=== PATIENT | female | born 1995 | race African-American/Black ===

== ENCOUNTER 2020-01-23 07:54 | Observation (INO) ==
[2020-01-23] MEDS ORDERED: OXYTOCIN 30 UNITS/500 ML BAG IV PRN (08:53)
[2020-01-23] MEDS ORDERED: LABETALOL HCL 100 MG TAB PO ONE (08:53)
--- NOTE | 2020-01-23 09:08 | History & Physical Report ---
Date of Service January 23, 2020 Assessment & Plan (1) Elective induction of labor planned: Patient is a 24-year-old G1, P0 at 40 weeks and 2 days of gestation, presenting today for scheduled induction of labor at term. Blood pressures are elevated since admission, mild right-sided headache. heart rate reassuring GBS negative Coronavirus negative Cervix unfavorable Plan to admit, labs, CBC CMP and LDH, labetalol for elevated blood pressure. Cervical ripening, discussed different options as oral Cytotec versus intravaginal Cervidil versus Thompson balloon. Patient is unable to tolerate vaginal exams and prefer oral cervical ripening. Continue to monitor. (2) Elevated blood pressure affecting in third trimester, antepartum: Admission and Anticipated Discharge Date Admission Date: January 23, 2020 History of Present Illness Primary Care Provider: NO PCP Patient is a 24-year-old G1, P0 at 40 weeks and 2 days of gestation with a present presenting today for scheduled induction of labor at term. Patient denies contractions, leakage of fluid, vaginal bleeding. Patient reports good movements. Patient denies fever chills, chest pain shortness of breath, nausea vomiting, epigastric or right upper quadrant pain, leg pain. Patient reports mild headache on her right adventism. No change in her vision. Allergies Allergy/AdvReac Type Severity Reaction Status Date / Time quinine [From Quine] Allergy Rash Verified 01/23/20 08:11 Home Medications Home Medications Medication Instructions Recorded Confirmed Type PNV cmb#95-ferrous fumarate-FA 1 tab PO HS 02/17/19 01/23/20 History [] Patient History Medical History No pertinent past medical history Surgical History No pertinent past surgical history Family History Other No pertinent family history Social History Smoking Status: Never smoker Second Hand Exposure: No; Do You Dip or Chew Tobacco: No; Tobacco Cessation Education Requested by Patient: No Hx Alcohol Use: No Hx Substance Use: No Preferred Language: Mohawk Communication Ability: Effective Executive Chef Required: No Beliefs That Will Affect Care: None marital status: Current Living Situation: Spouse Current Living Situation Comment: Lives at home with Other Information That Helps Us Care for You: No Feels Safe at Home: Yes Safety Concerns: Feels Safe At This Time Assistive Devices: None 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 History Noh/o STD's, no HSV/ GC/ Chlamydia Review of Systems All systems reviewed & are unremarkable except as noted in HPI & below Physical Exam Constitutional: WD/WN, vitals as above well developed and well nourished NAD, Comfortable Gastrointestinal (Abdomen): normal bowel sounds, soft, nontender, no hepatosplenomegaly (No epig/ RUQ pain) Genitourinary: normal external appearance OB Exam Abdomen: + vertex (bed side US) Manual OB Exam: + cervical dilation 1 cm, + cervical effacement 10% and + station high OB Exam Monitor Tracing: + category I Results & Data ([facility]) Vital Signs (Past 12 Hours) Vital Signs Temp Pulse Resp BP 01/23/20 08:57 97 H 150/96 H 01/23/20 08:47 93 H 159/100 H 01/23/20 08:37 87 154/84 H 01/23/20 08:26 95 H 154/99 H 01/23/20 08:18 93 H 152/106 H 01/23/20 08:17 99 H 141/102 H 01/23/20 08:11 36.7 C 114 H 18 145/95 H 01/23/20 08:06 114 H 145/95 H 01/23/20 08:00 102 H 156/93 H 01/23/20 07:57 98 H 171/110 H
[2020-01-23 09:19] LABS: Hematocrit (blood only) 34.2 % (37-47); Hemoglobin 11.6 g/dL (12.0-16.0); Mean Corpuscular Hemoglobin 28.4 pg (25-34); Mean Corpuscular Volume 83.8 fL (80-100); Mean Platelet Volume 11.4 fL (7.4-10.4); Platelet Count 181 K/uL (130-400); RDW Coefficient of Variation 14.4 % (11.5-14.5); RDW Standard Deviation 44.2 fL (36.4-46.3); Red Blood Count 4.08 M/uL (4.2-5.4); White Blood Count 9.55 K/uL (4.8-10.8)
[2020-01-23] MEDS: miSOPROStoL 50 MCG TAB PO SCH ×3 (09:20→21:33)
[2020-01-23 09:27] LABS: Appearance Urine Cloudy (Clear); Bacteria Urine Automated 1+ (Negative); Bilirubin Urine Negative (Negative); Blood Urine Trace (Negative); Color Urine Dark Yellow; Epithelial Cell Urine Auto >30 /lpf (0-5); Glucose Urine UA Negative (Negative); Ketones Urine Negative (Negative); Leukocyte Esterase Urine 2+ (Negative); Nitrite Urine Negative (Negative); Protein Urine 1+ (Negative); Specific Gravity Urine 1.017 (1.000-1.030); Urobilinogen Urine Negative (Negative); pH Urine 6.5 (4.5-7.5)
[2020-01-23 09:40] LABS: Mean Corpuscular Hgb Conc 33.9 g/dL (32-36)
[2020-01-23 09:46] LABS: Calcium Oxalate Crystals Urine Present (None Prsent); RBC Urine Automated 0-4 /hpf (0-4)
[2020-01-23 09:46] LABS: Alanine Aminotransferase 16 U/L (12-78); Albumin Level 2.5 gm/dl (3.4-5.0); Aspartate Aminotransferase 17 U/L (15-37); Blood Urea Nitrogen 10 mg/dl (7-18); Calcium 11.5 mg/dl (8.5-10.1); Carbon Dioxide 20 mmol/L (21-32); Chloride 109 mmol/L (98-107); Creatinine Clr Calc Pharmacy 161.1 ml/min; Est GFR (African American) > 150.0; Est GFR (Non-African American) 133.6; Glucose 85 mg/dl (70-99); Potassium 3.8 mmol/L (3.5-5.1); Sodium 137 mmol/L (136-145)
[2020-01-23 09:49] LABS: Albumin Globulin Ratio 0.5 (0.9-2); Alkaline Phosphatase 234 U/L (45-117); Bilirubin,Total 0.2 mg/dl (0.2-1); Globulin 5.1 gm/dl (2.5-4.0); Total Protein 7.6 gm/dl (6.4-8.2)
[2020-01-23] MEDS: LABETALOL HCL 100 MG TAB PO SCH ×2 (16:10→20:29)
[2020-01-23] MEDS ORDERED: DINOPROSTONE 10 MG INSERT PV ONE (18:49)
--- NOTE | 2020-01-23 18:49 | Obstetrical Progress Note ---
Date of Service January 23, 2020 Assessment & Plan Admission and Anticipated Discharge Date Admission Date: January 23, 2020 Subjective Patient is reevaluated She is due for 3rd dose of Cytotec but she is hungry and likes to eat her own food from home before Her LONGORIA's was gone in the morning and starting to come back She normally has black tea and has not had it today Cts are staring as every 5-10 min, pain is 3-4/ 10 FHR categ I Discussed PO Cytotec vs Cervidil and she likes to try Cervidil this time Plan to feed her and Cervidil after an hour Results & Data ([facility]) Vital Signs (Past 12 Hours) Vital Signs Temp Pulse Resp BP 01/23/20 18:31 64 159/94 H 01/23/20 17:24 85 155/102 H 01/23/20 17:10 90 141/96 H 01/23/20 16:55 67 139/88 01/23/20 16:40 69 141/79 H 01/23/20 16:25 62 138/78 01/23/20 16:09 63 154/92 H 01/23/20 15:39 36.6 C 108 H 18 151/89 H 01/23/20 15:09 78 156/93 H 01/23/20 14:38 82 139/90 01/23/20 14:08 65 149/97 H 01/23/20 12:36 70 140/78 01/23/20 12:27 77 139/76 01/23/20 12:17 81 130/68 01/23/20 12:07 82 134/76 01/23/20 11:56 81 143/65 H 01/23/20 11:47 83 147/68 H 01/23/20 11:37 78 144/78 H 01/23/20 11:27 36.8 C 93 H 16 141/70 H 01/23/20 11:16 94 H 161/89 H 01/23/20 11:07 83 143/84 H 01/23/20 10:57 83 157/89 H 01/23/20 10:48 85 158/93 H 01/23/20 10:36 86 152/95 H 01/23/20 10:27 79 145/96 H 01/23/20 10:16 86 147/79 H 01/23/20 10:07 90 147/94 H 01/23/20 09:56 111 H 175/104 H 01/23/20 09:46 85 157/98 H 01/23/20 09:37 85 150/99 H 01/23/20 09:27 76 152/98 H 01/23/20 09:17 100 H 155/98 H 01/23/20 09:06 93 H 157/99 H 01/23/20 08:57 97 H 150/96 H 01/23/20 08:47 93 H 159/100 H 01/23/20 08:37 87 154/84 H 01/23/20 08:26 95 H 154/99 H 01/23/20 08:18 93 H 152/106 H 01/23/20 08:17 99 H 141/102 H 01/23/20 08:11 36.7 C 114 H 18 145/95 H 01/23/20 08:06 114 H 145/95 H 01/23/20 08:05 36.7 C 114 H 18 01/23/20 08:00 102 H 156/93 H 01/23/20 07:57 98 H 171/110 H
[2020-01-23] MEDS: ACETAMINOPHEN 325 MG TAB PO PRN (20:35)
--- NOTE | 2020-01-23 20:36 | Obstetrical Progress Note ---
Date of Service January 23, 2020 Assessment & Plan Admission and Anticipated Discharge Date Admission Date: January 23, 2020 Subjective Patient had her dinner and took shower, feels much better No ctxs/ LOF/VB No LONGORIA/Change in vision +FM's Vital Signs Temp Pulse Resp BP 01/23/20 20:32 77 139/96 01/23/20 19:02 36.9 C 85 20 136/93 01/23/20 18:31 64 159/94 H 01/23/20 17:24 85 155/102 H 01/23/20 17:10 90 141/96 H 01/23/20 16:55 67 139/88 01/23/20 16:40 69 141/79 H 01/23/20 16:25 62 138/78 01/23/20 16:09 63 154/92 H 01/23/20 15:39 36.6 C 108 H 18 151/89 H 01/23/20 15:09 78 156/93 H 01/23/20 14:38 82 139/90 01/23/20 14:08 65 149/97 H 01/23/20 12:36 70 140/78 01/23/20 12:27 77 139/76 01/23/20 12:17 81 130/68 01/23/20 12:07 82 134/76 01/23/20 11:56 81 143/65 H 01/23/20 11:47 83 147/68 H 01/23/20 11:37 78 144/78 H 01/23/20 11:27 36.8 C 93 H 16 141/70 H 01/23/20 11:16 94 H 161/89 H 01/23/20 11:07 83 143/84 H 01/23/20 10:57 83 157/89 H 01/23/20 10:48 85 158/93 H 01/23/20 10:36 86 152/95 H 01/23/20 10:27 79 145/96 H 01/23/20 10:16 86 147/79 H 01/23/20 10:07 90 147/94 H 01/23/20 09:56 111 H 175/104 H 01/23/20 09:46 85 157/98 H 01/23/20 09:37 85 150/99 H 01/23/20 09:27 76 152/98 H 01/23/20 09:17 100 H 155/98 H 01/23/20 09:06 93 H 157/99 H 01/23/20 08:57 97 H 150/96 H 01/23/20 08:47 93 H 159/100 H 01/23/20 08:37 87 154/84 H On Labetalol PO for elevated BP's Normal labs Cervix unchanged, 1 cm. thick/ -4, Cervidil is placed in posterior fornix Continue to monitor closely Results & Data ([facility]) Vital Signs (Past 12 Hours) Vital Signs Temp Pulse Resp BP 01/23/20 20:32 77 139/96 01/23/20 19:02 36.9 C 85 20 136/93 01/23/20 18:31 64 159/94 H 01/23/20 17:24 85 155/102 H 01/23/20 17:10 90 141/96 H 01/23/20 16:55 67 139/88 01/23/20 16:40 69 141/79 H 01/23/20 16:25 62 138/78 01/23/20 16:09 63 154/92 H 01/23/20 15:39 36.6 C 108 H 18 151/89 H 01/23/20 15:09 78 156/93 H 01/23/20 14:38 82 139/90 01/23/20 14:08 65 149/97 H 01/23/20 12:36 70 140/78 01/23/20 12:27 77 139/76 01/23/20 12:17 81 130/68 01/23/20 12:07 82 134/76 01/23/20 11:56 81 143/65 H 01/23/20 11:47 83 147/68 H 01/23/20 11:37 78 144/78 H 01/23/20 11:27 36.8 C 93 H 16 141/70 H 01/23/20 11:16 94 H 161/89 H 01/23/20 11:07 83 143/84 H 01/23/20 10:57 83 157/89 H 01/23/20 10:48 85 158/93 H 01/23/20 10:36 86 152/95 H 01/23/20 10:27 79 145/96 H 01/23/20 10:16 86 147/79 H 01/23/20 10:07 90 147/94 H 01/23/20 09:56 111 H 175/104 H 01/23/20 09:46 85 157/98 H 01/23/20 09:37 85 150/99 H 01/23/20 09:27 76 152/98 H 01/23/20 09:17 100 H 155/98 H 01/23/20 09:06 93 H 157/99 H 01/23/20 08:57 97 H 150/96 H 01/23/20 08:47 93 H 159/100 H 01/23/20 08:37 87 154/84 H
[2020-01-24] MEDS: LABETALOL HCL 100 MG TAB PO SCH ×2 (08:58→21:06)
[2020-01-24] MEDS: LACTATED RINGER'S 1,000 ML IV PRN ×3 (09:48→21:00)
[2020-01-24] MEDS: BUTORPHANOL TARTRATE 1 MG/ML VIAL IV PRN ×2 (09:57→16:53)
--- NOTE | 2020-01-24 10:04 | Obstetrical Progress Note ---
Date of Service January 24, 2020 Assessment & Plan Admission and Anticipated Discharge Date Admission Date: January 23, 2020 Subjective Pt doing well FHR; CAT1 ctx ; 1-2mins VE; ft/post. pt tolerated pelvic exam poorly Plan; Pitocin augmentation as needed Results & Data ([facility]) Vital Signs (Past 12 Hours) Vital Signs Temp Pulse Resp BP 01/24/20 10:02 96 H 138/84 01/24/20 08:58 116 H 144/92 H 01/24/20 07:07 37.0 C 112 H 20 142/68 H 01/24/20 05:56 106 H 143/69 H 01/24/20 03:07 90 123/64 01/24/20 03:06 36.8 C 16 01/24/20 00:31 85 141/85 H 01/23/20 22:30 98 H 20 150/74 H
[2020-01-24] MEDS ORDERED: OXYTOCIN 30 UNITS/500 ML BAG IV PRN (11:00)
--- NOTE | 2020-01-24 16:50 | Obstetrical Progress Note ---
Date of Service January 24, 2020 Assessment & Plan Admission and Anticipated Discharge Date Admission Date: January 23, 2020 Subjective Doing well FHR; CAT1 Ctx; 2-4mins VE; 1/50/-3 Pit 14mu Thompson bulb placed with 30 cc salne Results & Data ([facility]) Vital Signs (Past 12 Hours) Vital Signs Temp Pulse Resp BP 01/24/20 16:02 97 H 20 137/94 01/24/20 15:02 36.8 C 93 H 16 135/85 01/24/20 14:02 88 16 144/90 H 01/24/20 13:02 96 H 18 133/68 01/24/20 12:02 36.8 C 94 H 16 142/75 H 01/24/20 11:02 93 H 20 136/70 01/24/20 10:02 96 H 138/84 01/24/20 08:58 116 H 144/92 H 01/24/20 07:07 37.0 C 112 H 20 142/68 H 01/24/20 05:56 106 H 143/69 H
[2020-01-24] MEDS: miSOPROStoL 50 MCG TAB PO SCH (19:13)
[2020-01-24] MEDS ORDERED: BUPIVACAINE 0.25% 30 ML VIAL ONE (20:36)
[2020-01-24] MEDS ORDERED: ePHEDrine sulfate 50 MG/ML AMP ONE (20:36)
[2020-01-24] MEDS ORDERED: fentaNYL 2MCG/ML ROPIVACAINE 1.25MG/ML 100 ML BAG EPI ONE (20:37)
[2020-01-24] MEDS ORDERED: fentaNYL citrate 100 MCG/2 ML VIAL ONE (20:37)
--- NOTE | 2020-01-24 21:14 | Anesthesiology Consultation ---
Date of Service January 24, 2020 Assessment & Plan (1) Encounter for pre-operative examination: Chart Review Chart Review: Acceptable Risk for Labor Epidural Consults Requested none ASA ASA2 Proposed Anesthesia Anesthesia Type: Labor Epidural Risk / Benefits Reviewed With: PT / POA / Parent / Guardian, Accepts Plan and Informed Consent Obtained History Height/Weight Height: 5 ft 4 in Weight: 67.585 kg Allergies Allergy/AdvReac Type Severity Reaction Status Date / Time quinine [From Quine] Allergy Rash Verified 01/23/20 08:11 Medications Home Medications Medication Instructions Recorded Confirmed Last Taken PNV cmb#95-ferrous fumarate-FA 1 tab PO HS 02/17/19 01/23/20 01/22/20 18:00 [] Active Medications Generic Name Dose Route Start Last Admin Trade Name Freq PRN Reason Stop Dose Admin Acetaminophen 650 mg 01/23/20 18:49 01/23/20 20:35 Acetaminophen 325 Mg Tab PO 02/22/20 18:48 650 mg Q4H PRN Administration Headache Butorphanol Tartrate 1 mg 01/23/20 20:33 01/24/20 16:53 Butorphanol Tartrate 1 Mg/Ml Vial IV 02/22/20 20:32 1 mg Q3HWA PRN Administration Pain Lactated Ringer's 1,000 mls @ 150 mls/hr 01/23/20 08:53 01/24/20 21:00 Lr IV 01/25/20 08:52 999 mls/hr .Q6H40M PRN Administration L&D Protocol Protocol Oxytocin 30 units in 500 mls @ 20 mls/hr 01/24/20 11:00 01/24/20 19:14 Pitocin IV 01/26/20 10:59 1.2 units/hr .Q24H PRN 20 mls/hr Labor Induction/Augmentation Titration Protocol 1.2 UNITS/HR Labetalol HCl 100 mg 01/23/20 16:10 01/24/20 21:06 Labetalol Hcl 100 Mg Tab PO 02/22/20 16:09 100 mg BID ROLAND Administration Misoprostol 50 mcg 01/23/20 09:00 01/24/20 19:13 Misoprostol 50 Mcg Tab PO 02/22/20 08:59 Not Given Q4 ROLAND Past Medical History Medical History Malaria No pertinent past medical history Exercise / Class Metabolic Activity II 4-5 Yardwork/Stairs/Walk up hill Past Family History Family History Other No pertinent family history Past Surgical History Surgical History No pertinent past surgical history Past Anesthesia History No Hx of Anesthesia Complications and No Family Hx of Anesthesia Complications History of PONV No Hx of PONV and No Hx of Motion Sickness Social History Smoking Status: Never smoker Do You Dip or Chew Tobacco: No Hx Alcohol Use: No Hx Substance Use: No Physical Exam Vital Signs Last Vital Signs Temp 97.9 F 01/24/20 19:07 Pulse 75 01/24/20 21:09 Resp 18 01/24/20 20:00 BP 162/91 H 01/24/20 21:02 Pulse Ox 99 01/24/20 21:09 ENMT Mouth: no dentition abnormality Thyromental Distance: > or= 3.5 Finger Breadths Mallampati Class: II Neck normal visual inspection Respiratory normal respiratory effort Auscultation: lungs clear to auscultation bilaterally Cardiovascular Rate/Rhythm: regular rate and regular rhythm Testing Laboratory Results 01/23/20 09:01 01/23/20 09:01 Urine Color Dark Yellow 01/23/20 08:00 Urine Appearance Cloudy (Clear) A 01/23/20 08:00 Urine pH 6.5 (4.5-7.5) 01/23/20 08:00 Ur Specific Watson 1.017 (1.000-1.030) 01/23/20 08:00 Urine Protein 1+ (Negative) H 01/23/20 08:00 Urine Glucose (UA) Negative (Negative) 01/23/20 08:00 Urine Ketones Negative (Negative) 01/23/20 08:00 Urine Nitrite Negative (Negative) 01/23/20 08:00 Ur Leukocyte Esterase 2+ (Negative) H 01/23/20 08:00 Urine WBC (Auto) 10-30 /hpf (0-5) H 01/23/20 08:00 Urine RBC (Auto) 0-4 /hpf (0-4) 01/23/20 08:00 U Hyaline Cast (Auto) 1-5 /lpf (0-5) 01/23/20 08:00 U Epithel Cells (Auto) >30 /lpf (0-5) H 01/23/20 08:00 Urine Bacteria (Auto) 1+ (Negative) H 01/23/20 08:00 Blood Type B Positive 01/23/20 09:01 Antibody Screen NEGATIVE 01/23/20 09:01 01/23/20 08:00 Urine Culture - Preliminary Urine,Clean Catch Pin-point growth present, reincubating.
[2020-01-24] MEDS ORDERED: ONDANSETRON INJ 2 MG/ML 2 ML VIAL IV PRN (21:45)
[2020-01-24] MEDS ORDERED: NALOXONE HCL 0.4 MG/1 ML VIAL/CARP IV PRN (21:45)
[2020-01-24] MEDS ORDERED: NALOXONE HCL 1 MG in SODIUM CHLORIDE 0.9% 1000ML 1,000 ML IV PRN (21:45)
[2020-01-24] MEDS ORDERED: ePHEDrine sulfate 50 MG/ML AMP IV PRN (21:45)
[2020-01-24] MEDS ORDERED: fentaNYL 2MCG/ML ROPIVACAINE 1.25MG/ML 100 ML BAG EPI PRN (21:45)
[2020-01-24] MEDS ORDERED: diphenhydrAMINE 50 MG/ML VIAL IV PRN (21:45)
--- NOTE | 2020-01-24 23:10 | Obstetrical Progress Note ---
Date of Service January 24, 2020 Assessment & Plan Admission and Anticipated Discharge Date Admission Date: January 23, 2020 Subjective Pt doing well Received epidural analgesia FHR; CAT1 Ctx; 2-4mins VE; 3/75/-2 AROM- clear IUPC placed without difficulty continue with Pitocin augmentation Results & Data ([facility]) Vital Signs (Past 12 Hours) Vital Signs Temp Pulse Resp BP Pulse Ox 01/24/20 23:04 84 96 01/24/20 22:59 80 98 01/24/20 22:54 80 156/93 H 97 01/24/20 22:49 77 97 01/24/20 22:44 75 97 01/24/20 22:39 82 145/83 H 97 01/24/20 22:34 90 97 01/24/20 22:33 75 138/77 01/24/20 22:30 18 01/24/20 22:29 84 97 01/24/20 22:24 95 H 97 01/24/20 22:19 85 97 01/24/20 22:17 87 130/68 01/24/20 22:14 85 98 01/24/20 22:12 77 137/70 01/24/20 22:09 74 97 01/24/20 22:07 67 148/81 H 01/24/20 22:04 71 97 01/24/20 22:01 69 150/79 H 01/24/20 22:00 18 01/24/20 21:59 69 97 01/24/20 21:56 72 153/81 H 01/24/20 21:54 70 98 01/24/20 21:51 67 149/84 H 01/24/20 21:50 18 01/24/20 21:49 69 98 01/24/20 21:48 18 01/24/20 21:46 67 18 148/85 H 01/24/20 21:44 71 18 145/85 H 99 01/24/20 21:42 83 18 152/89 H 01/24/20 21:40 75 18 156/89 H 01/24/20 21:39 80 99 01/24/20 21:38 18 01/24/20 21:37 74 161/91 H 01/24/20 21:36 93 H 163/82 H 01/24/20 21:34 76 97 01/24/20 21:33 76 159/102 H 01/24/20 21:32 83 173/109 H 01/24/20 21:29 85 98 01/24/20 21:24 77 98 01/24/20 21:19 73 98 01/24/20 21:14 75 99 01/24/20 21:09 75 99 01/24/20 21:04 78 98 01/24/20 21:02 78 162/91 H 01/24/20 21:00 18 01/24/20 20:59 75 98 01/24/20 20:54 80 98 01/24/20 20:49 84 99 01/24/20 20:25 75 143/87 H 01/24/20 20:03 75 153/80 H 01/24/20 20:00 18 01/24/20 19:38 85 141/77 H 01/24/20 19:07 36.6 C 18 01/24/20 19:02 83 153/92 H 01/24/20 18:02 90 144/86 H 01/24/20 17:02 76 16 140/75 01/24/20 16:02 97 H 20 137/94 01/24/20 15:02 36.8 C 93 H 16 135/85 01/24/20 14:02 88 16 144/90 H 01/24/20 13:02 96 H 18 133/68 01/24/20 12:02 36.8 C 94 H 16 142/75 H
--- NOTE | 2020-01-24 23:18 | Obstetrical Progress Note ---
Date of Service January 24, 2020 Assessment & Plan Admission and Anticipated Discharge Date Admission Date: January 23, 2020 Subjective Results & Data ([facility]) Vital Signs (Past 12 Hours) Vital Signs Temp Pulse Resp BP Pulse Ox 01/24/20 23:14 83 97 01/24/20 23:09 91 H 140/84 97 01/24/20 23:04 84 96 01/24/20 22:59 80 98 01/24/20 22:54 80 156/93 H 97 01/24/20 22:49 77 97 01/24/20 22:44 75 97 01/24/20 22:39 82 145/83 H 97 01/24/20 22:34 90 97 01/24/20 22:33 75 138/77 01/24/20 22:30 18 01/24/20 22:29 84 97 01/24/20 22:24 95 H 97 01/24/20 22:19 85 97 01/24/20 22:17 87 130/68 01/24/20 22:14 85 98 01/24/20 22:12 77 137/70 01/24/20 22:09 74 97 01/24/20 22:07 67 148/81 H 01/24/20 22:04 71 97 01/24/20 22:01 69 150/79 H 01/24/20 22:00 18 01/24/20 21:59 69 97 01/24/20 21:56 72 153/81 H 01/24/20 21:54 70 98 01/24/20 21:51 67 149/84 H 01/24/20 21:50 18 01/24/20 21:49 69 98 01/24/20 21:48 18 01/24/20 21:46 67 18 148/85 H 01/24/20 21:44 71 18 145/85 H 99 01/24/20 21:42 83 18 152/89 H 01/24/20 21:40 75 18 156/89 H 01/24/20 21:39 80 99 01/24/20 21:38 18 01/24/20 21:37 74 161/91 H 01/24/20 21:36 93 H 163/82 H 01/24/20 21:34 76 97 01/24/20 21:33 76 159/102 H 01/24/20 21:32 83 173/109 H 01/24/20 21:29 85 98 01/24/20 21:24 77 98 01/24/20 21:19 73 98 01/24/20 21:14 75 99 01/24/20 21:09 75 99 01/24/20 21:04 78 98 01/24/20 21:02 78 162/91 H 01/24/20 21:00 18 01/24/20 20:59 75 98 01/24/20 20:54 80 98 01/24/20 20:49 84 99 01/24/20 20:25 75 143/87 H 01/24/20 20:03 75 153/80 H 01/24/20 20:00 18 01/24/20 19:38 85 141/77 H 01/24/20 19:07 36.6 C 18 01/24/20 19:02 83 153/92 H 01/24/20 18:02 90 144/86 H 01/24/20 17:02 76 16 140/75 01/24/20 16:02 97 H 20 137/94 01/24/20 15:02 36.8 C 93 H 16 135/85 01/24/20 14:02 88 16 144/90 H 01/24/20 13:02 96 H 18 133/68 01/24/20 12:02 36.8 C 94 H 16 142/75 H
[2020-01-25] MEDS: LACTATED RINGER'S 1,000 ML IV PRN ×2 (00:41→07:06)
[2020-01-25] MEDS ORDERED: Nursing to Pharmacy Communication SCH ×2 (01:00→05:45)
[2020-01-25] MEDS ORDERED: fentaNYL citrate 100 MCG/2 ML VIAL ONE (05:46)
[2020-01-25] MEDS ORDERED: BUPIVACAINE 0.25% 30 ML VIAL ONE (05:51)
--- NOTE | 2020-01-25 05:59 | Anesthesiology Progress Note ---
Date of Service January 25, 2020 Assessment & Plan Admission and Anticipated Discharge Date Admission Date: January 23, 2020 Subjective Patient states having increasing left sided labor pains. Epidural catheter was pulled back 1 cm. Epidural was bolused with 50mcg of fentanyl and 2mL of 0.25% bupivacaine. Physical Exam Vital Signs: Last Vital Signs Temp 98.6 F 01/25/20 02:31 Pulse 78 01/25/20 05:57 Resp 18 01/25/20 02:31 BP 158/67 H 01/25/20 05:57 Pulse Ox 96 01/25/20 05:54 Results & Data ([facility]) Medications Administered Acetaminophen (Acetaminophen 325 Mg Tab) 650 mg PO Q4H PRN PRN Reason: Headache Stop: 02/22/20 18:48 Last Admin: 01/23/20 20:35 Dose: 650 mg Documented by: [id number] Butorphanol Tartrate (Butorphanol Tartrate 1 Mg/Ml Vial) 1 mg IV Q3HWA PRN PRN Reason: Pain Stop: 02/22/20 20:32 Last Admin: 01/24/20 16:53 Dose: 1 mg Documented by: [id number] Cosigned by: [id number] Admin: 01/24/20 09:57 Dose: 1 mg Documented by: [id number] Cosigned by: [id number] Lactated Ringer's (Lr) 1,000 mls @ 150 mls/hr IV .Q6H40M PRN; Protocol PRN Reason: L&D Protocol Stop: 01/25/20 08:52 Last Admin: 01/25/20 00:41 Dose: 150 mls/hr Documented by: [id number] Infusion: 01/25/20 00:41 Dose: 150 mls/hr Documented by: [id number] Infusion: 01/24/20 21:26 Dose: 150 mls/hr Documented by: [id number] Admin: 01/24/20 21:00 Dose: 999 mls/hr Documented by: [id number] Infusion: 01/24/20 21:00 Dose: 0 mls/hr Documented by: [id number] Infusion: 01/24/20 20:30 Dose: 999 mls/hr Documented by: [id number] Infusion: 01/24/20 18:44 Dose: 125 mls/hr Documented by: [id number] Admin: 01/24/20 15:39 Dose: 125 mls/hr Documented by: [id number] Infusion: 01/24/20 10:49 Dose: 999 mls/hr Documented by: [id number] Admin: 01/24/20 09:48 Dose: 999 mls/hr Documented by: [id number] Oxytocin (Pitocin) 30 units in 500 mls @ 30 mls/hr IV .[id number] PRN; Protocol PRN Reason: Labor Induction/Augmentation Stop: 01/26/20 10:59 Last Titration: 01/25/20 01:00 Dose: 1.8 units/hr, 30 mls/hr Documented by: [id number] Titration: 01/25/20 00:30 Dose: 1.68 units/hr, 28 mls/hr Documented by: [id number] Titration: 01/25/20 00:00 Dose: 1.56 units/hr, 26 mls/hr Documented by: [id number] Titration: 01/24/20 23:30 Dose: 1.44 units/hr, 24 mls/hr Documented by: [id number] Titration: 01/24/20 23:02 Dose: 1.32 units/hr, 22 mls/hr Documented by: [id number] Titration: 01/24/20 19:14 Dose: 1.2 units/hr, 20 mls/hr Documented by: [id number] Titration: 01/24/20 18:00 Dose: 1.08 units/hr, 18 mls/hr Documented by: [id number] Titration: 01/24/20 17:30 Dose: 0.96 units/hr, 16 mls/hr Documented by: [id number] Titration: 01/24/20 16:30 Dose: 0.84 units/hr, 14 mls/hr Documented by: [id number] Titration: 01/24/20 15:30 Dose: 0.72 units/hr, 12 mls/hr Documented by: [id number] Titration: 01/24/20 15:00 Dose: 0.6 units/hr, 10 mls/hr Documented by: [id number] Titration: 01/24/20 14:19 Dose: 0.48 units/hr, 8 mls/hr Documented by: [id number] Titration: 01/24/20 12:55 Dose: 0.36 units/hr, 6 mls/hr Documented by: [id number] Titration: 01/24/20 12:00 Dose: 0.24 units/hr, 4 mls/hr Documented by: [id number] Admin: 01/24/20 11:11 Dose: 0.12 units/hr, 2 mls/hr Documented by: [id number] Cosigned by: [id number] Labetalol HCl (Labetalol Hcl 100 Mg Tab) 100 mg PO BID [facility] Stop: 02/22/20 16:09 Last Admin: 01/24/20 21:06 Dose: 100 mg Documented by: [id number] Admin: 01/24/20 08:58 Dose: 100 mg Documented by: [id number] Admin: 01/23/20 20:29 Dose: 100 mg Documented by: [id number] Admin: 01/23/20 16:10 Dose: 100 mg Documented by: [id number] Misoprostol (Misoprostol 50 Mcg Tab) 50 mcg PO Q4 [facility] Stop: 02/22/20 08:59 Last Admin: 01/24/20 19:13 Dose: Not Given Documented by: [id number] Admin: 01/23/20 21:33 Dose: Not Given Documented by: [id number] Admin: 01/23/20 21:33 Dose: Not Given Documented by: [id number] Admin: 01/23/20 14:30 Dose: 50 mcg Documented by: [id number] Admin: 01/23/20 09:20 Dose: 50 mcg Documented by: [id number] Ropivacaine (Fentanyl 2mcg/Ml Ropiv 1.25mg/Ml 100 Ml Bag) 100 ml EPI PRN PRN; Protocol PRN Reason: Pain R/T Labor Stop: 01/25/20 21:44 Last Admin: 01/25/20 05:33 Dose: 100 ml Documented by: [id number] Cosigned by: [id number]
[2020-01-25] MEDS ORDERED: ceFAZolin 2000MG 2,000 MG/15 ML SYR IV SCH (06:00)
--- NOTE | 2020-01-25 07:22 | Obstetrical Progress Note ---
Date of Service January 25, 2020 Assessment & Plan Admission and Anticipated Discharge Date Admission Date: January 23, 2020 Subjective pt doing well Failure to progress Cervical exam unchaged since pt has been on 30U of Pitocin since Discussed options including c/sec pt is agreeable to c/sec consent signed for c/section Results & Data ([facility]) Vital Signs (Past 12 Hours) Vital Signs Temp Pulse Resp BP Pulse Ox 01/25/20 07:15 89 96 01/25/20 07:11 87 142/61 H 01/25/20 07:10 93 H 97 01/25/20 07:05 94 H 97 01/25/20 07:00 87 94 01/25/20 06:56 93 H 153/72 H 01/25/20 06:55 89 95 01/25/20 06:50 82 96 01/25/20 06:45 84 95 01/25/20 06:41 83 155/70 H 01/25/20 06:40 87 94 01/25/20 06:35 85 94 01/25/20 06:30 81 95 01/25/20 06:28 84 94 01/25/20 06:26 77 147/68 H 01/25/20 06:25 83 95 01/25/20 06:19 84 94 01/25/20 06:14 79 96 01/25/20 06:10 75 137/65 01/25/20 06:09 77 95 01/25/20 06:08 71 139/67 01/25/20 06:06 75 135/64 01/25/20 06:04 78 131/60 96 01/25/20 06:02 94 H 148/70 H 01/25/20 06:01 36.9 C 20 01/25/20 06:00 103 H 93 01/25/20 05:59 86 96 01/25/20 05:58 86 160/73 H 01/25/20 05:57 78 158/67 H 01/25/20 05:54 74 96 01/25/20 05:49 75 97 01/25/20 05:45 73 139/66 01/25/20 05:44 79 96 01/25/20 05:39 75 96 01/25/20 05:34 67 96 01/25/20 05:29 69 138/68 96 09/23/20 05:24 89 96 20 05:19 68 98 20 05:14 78 148/83 H 97 01/25/20 05:09 81 98 20 05:04 80 97 20 04:59 68 135/83 98 20 04:54 73 96 20 04:49 74 95 20 04:44 73 166/75 H 97 01/25/20 04:39 83 96 01/25/20 04:34 78 95 20 04:31 78 94 20 04:29 73 145/72 H 96 01/25/20 04:24 78 95 20 04:22 80 94 01/25/20 04:19 80 95 01/25/20 04:15 68 139/67 01/25/20 04:14 81 96 01/25/20 04:09 75 96 01/25/20 04:04 78 96 01/25/20 03:59 76 141/67 H 96 01/25/20 03:54 78 96 01/25/20 03:50 84 94 20 03:49 85 95 20 03:44 76 140/68 96 01/24/20 03:39 82 96 01/25/20 03:34 84 96 01/25/20 03:30 76 136/69 01/24/20 03:29 76 97 20 03:24 76 96 20 03:19 75 96 20 03:15 93 H 137/60 01/25/20 03:14 106 H 97 01/25/20 03:09 83 95 20 03:06 87 94 20 03:04 84 94 20 02:59 82 143/74 H 94 01/24/20 02:54 80 94 20 02:53 75 94 20 02:49 80 94 20 02:47 90 94 20 02:46 90 144/87 H 20 02:45 90 139/89 01/24/20 02:44 82 95 20 02:39 104 H 95 20 02:38 85 94 09/23/20 02:34 88 95 20 02:31 37.0 C 83 18 94 23/20 02:29 79 147/74 H 95 20 02:24 80 96 20 02:19 95 H 97 20 02:14 78 141/67 H 96 01/25/20 02:09 82 96 20 02:04 80 97 20 01:59 79 151/70 H 95 20 01:54 78 95 20 01:49 79 96 01/24/20 01:44 75 135/73 96 01/24/20 01:39 84 96 01/24/20 01:34 90 97 20 01:30 76 147/73 H 01/25/20 01:29 90 97 20 01:24 76 96 20 01:19 82 96 20 01:15 80 147/70 H 01/25/20 01:14 78 95 01/25/20 01:09 79 96 01/25/20 01:04 86 94 20 00:59 77 142/74 H 96 20 00:54 81 96 01/24/20 00:49 85 95 01/24/20 00:48 85 94 20 00:44 76 141/67 H 96 01/25/20 00:39 74 96 20 00:34 83 97 20 00:30 72 134/65 01/24/20 00:29 80 96 01/25/20 00:24 80 95 01/25/20 00:19 76 96 20 00:14 72 97 01/24/20 00:09 75 97 01/24/20 00:04 76 139/71 97 22/20 23:59 79 98 22/20 23:54 74 97 0922/20 23:49 67 144/70 H 97 01/23/20 23:44 70 98 0922/20 23:39 78 138/67 96 22/20 23:34 79 97 0922/20 23:29 73 97 0922/20 23:25 68 133/63 0922/20 23:24 73 96 22/20 23:19 97 H 95 01/24/20 23:14 83 97 01/24/20 23:09 91 H 140/84 97 01/24/20 23:04 84 96 01/24/20 22:59 80 98 01/24/20 22:54 80 156/93 H 97 01/24/20 22:49 77 97 01/24/20 22:44 75 97 01/24/20 22:39 82 145/83 H 97 01/24/20 22:34 90 97 01/24/20 22:33 75 138/77 01/24/20 22:30 18 01/24/20 22:29 84 97 01/24/20 22:24 95 H 97 01/24/20 22:19 85 97 01/24/20 22:17 87 130/68 01/24/20 22:14 85 98 01/24/20 22:12 77 137/70 01/24/20 22:09 74 97 01/24/20 22:07 67 148/81 H 01/24/20 22:04 71 97 01/24/20 22:01 69 150/79 H 01/24/20 22:00 18 01/24/20 21:59 69 97 01/24/20 21:56 72 153/81 H 01/24/20 21:54 70 98 01/24/20 21:51 67 149/84 H 01/24/20 21:50 18 01/24/20 21:49 69 98 01/24/20 21:48 18 01/24/20 21:46 67 18 148/85 H 01/24/20 21:44 71 18 145/85 H 99 01/24/20 21:42 83 18 152/89 H 01/24/20 21:40 75 18 156/89 H 01/24/20 21:39 80 99 01/24/20 21:38 18 01/24/20 21:37 74 161/91 H 01/24/20 21:36 93 H 163/82 H 01/24/20 21:34 76 97 01/24/20 21:33 76 159/102 H 01/24/20 21:32 83 173/109 H 01/24/20 21:29 85 98 01/24/20 21:24 77 98 01/24/20 21:19 73 98 01/24/20 21:14 75 99 01/24/20 21:09 75 99 01/24/20 21:04 78 98 01/24/20 21:02 78 162/91 H 01/24/20 21:00 18 01/24/20 20:59 75 98 01/24/20 20:54 80 98 01/24/20 20:49 84 99 01/24/20 20:25 75 143/87 H 01/24/20 20:03 75 153/80 H 01/24/20 20:00 18 01/24/20 19:38 85 141/77 H
[2020-01-25] MEDS ORDERED: LACTATED RINGER'S 1,000 ML IV SCH (07:30)
[2020-01-25] MEDS ORDERED: CITRIC ACID/SODIUM CITRATE 15 ML UDC ONE (07:43)
[2020-01-25 07:50] LABS: Eosinophils # (auto) 0.02 K/uL (0-0.5); Eosinophils % (auto) 0.2 %; Hematocrit (blood only) 32.9 % (37-47); Hemoglobin 10.9 g/dL (12.0-16.0); Immature Granulocytes # (auto) 0.03 K/uL (0.00-0.02); Immature Granulocytes % (auto) 0.3 %; Lymphocytes # (auto) 1.27 K/uL (1.2-3.4); Lymphocytes % (auto) 11.9 %; Mean Corpuscular Hemoglobin 27.9 pg (25-34); Mean Corpuscular Volume 84.1 fL (80-100); Mean Platelet Volume 10.9 fL (7.4-10.4); Monocytes # (auto) 1.27 K/uL (0.11-0.59); Monocytes % (auto) 11.9 %; Neutrophils # (auto) 8.11 K/uL (1.4-6.5); Neutrophils % (auto) 75.7 %; Platelet Count 169 K/uL (130-400); RDW Coefficient of Variation 14.7 % (11.5-14.5); RDW Standard Deviation 45.4 fL (36.4-46.3); Red Blood Count 3.91 M/uL (4.2-5.4)
[2020-01-25 08:02] LABS: Mean Corpuscular Hgb Conc 33.1 g/dL (32-36)
[2020-01-25] MEDS ORDERED: MoRPHine SULFATE PF 1 MG/ML 10 ML AMP/VIAL ONE (08:08)
[2020-01-25] MEDS ORDERED: OXYTOCIN 10 UNITS/ML VIAL ONE ×2 (08:39→08:43)
[2020-01-25] MEDS ORDERED: SODIUM CHLORIDE 0.9% INJ 10 ML VIAL ONE (08:40)
[2020-01-25] MEDS ORDERED: ESMOLOL HCL INJ 10 MG/ML 10ML VIAL IV ONE (08:57)
[2020-01-25] MEDS ORDERED: MIDAZOLAM HCL 1 MG/ML 2ML VIAL ONE (08:59)
[2020-01-25 09:19] LABS: Base Excess Cord Venous Blood -5.3 mEq/L (-7.7-1.9); Cord Venous Blood HCO3 20 mmol/L (18.4-26.8); Cord Venous Blood PCO2 36 mmHg (30.4-57.2); Cord Venous Blood PO2 24 mmHg (14.1-43.3); Cord Venous Blood pH 7.35 (7.20-7.44); O2 Saturation Cord Venous Bld < 60.0 % (<68)
--- NOTE | 2020-01-25 09:26 | Anesthesia Procedure Note ---
Date of Service January 25, 2020 Anesthesia Post Epidural Note Vital Signs Vital Signs: Temp Pulse Resp BP Pulse Ox 36.7 C 94 H 18 158/84 H 97 01/25/20 07:40 01/25/20 08:05 01/25/20 07:40 01/25/20 07:56 01/25/20 08:05 Pain Intensity Lower Back: Pain Intensity: 0 Notes Mental Status: alert / awake / arousable and participated in evaluation Nausea / Vomiting: adequately controlled Pain: adequately controlled Airway Patency, RR, SpO2: stable & adequate BP & HR: stable & adequate Hydration State: stable & adequate Neuraxial Anesthesia: was administered and sensory block is resolving Anesthetic Complications: no major complications apparent and Pt Satisfied with anesthetic care Epidural: Removed without complications and With tip intact
[2020-01-25] MEDS ORDERED: miSOPROStoL 200 MCG TAB ONE (09:31)
[2020-01-25] MEDS ORDERED: miSOPROStoL 200 MCG TAB PR ONE (09:42)
[2020-01-25] MEDS ORDERED: OXYTOCIN 10 UNITS/ML VIAL IM ONE (09:42)
[2020-01-25] MEDS ORDERED: diphenhydrAMINE 50 MG/ML VIAL IV PRN (09:55)
[2020-01-25] MEDS ORDERED: LACTATED RINGER'S 500 ML IV PRN (09:55)
[2020-01-25] MEDS ORDERED: KETOROLAC 30 MG/ML VIAL IV PRN (09:55)
[2020-01-25] MEDS ORDERED: NALOXONE HCL 0.4 MG/1 ML VIAL/CARP IV PRN (09:55)
[2020-01-25] MEDS ORDERED: ACETAMINOPHEN 1000 MG/100 ML IV IV PRN (09:55)
[2020-01-25] MEDS ORDERED: HYDROmorphone INJ 0.5 MG/0.5 ML SYR IV PRN (09:55)
[2020-01-25] MEDS ORDERED: ONDANSETRON INJ 2 MG/ML 2 ML VIAL IV PRN (09:55)
[2020-01-25] MEDS ORDERED: NALOXONE HCL 1 MG in SODIUM CHLORIDE 0.9% 1000ML 1,000 ML IV PRN (09:55)
[2020-01-25] MEDS ORDERED: MoRPHine SULFATE PF 1 MG/ML 10 ML AMP/VIAL INT SPINAL ONE (09:55)
[2020-01-25] MEDS ORDERED: NALOXONE HCL 0.08 MG in SYRINGE 1.8 ML IV PRN (09:55)
[2020-01-25] MEDS ORDERED: ePHEDrine sulfate 50 MG/ML AMP IV PRN (09:55)
--- NOTE | 2020-01-25 09:55 | Anesthesiology Progress Note ---
Date of Service January 25, 2020 Anesthesia Post Procedure Vital Signs Vital Signs: Temp Pulse Resp BP Pulse Ox 01/25/20 09:53 91 H 178/89 H 93 01/25/20 09:51 91 H 99 01/25/20 09:48 91 H 93 01/25/20 09:46 94 H 99 01/25/20 09:43 89 93 01/25/20 09:41 83 122/94 98 01/25/20 08:05 94 H 97 01/25/20 08:00 100 H 97 01/25/20 07:56 76 158/84 H 01/25/20 07:55 77 97 01/25/20 07:50 87 96 01/25/20 07:45 84 96 01/25/20 07:41 76 146/68 H 01/25/20 07:40 36.7 C 82 18 96 01/25/20 07:35 92 H 95 01/25/20 07:30 87 96 01/25/20 07:26 90 147/69 H 01/25/20 07:25 89 96 01/25/20 07:20 92 H 96 01/25/20 07:15 89 96 01/25/20 07:11 87 142/61 H 01/25/20 07:10 93 H 97 01/25/20 07:05 94 H 97 01/25/20 07:00 87 94 01/25/20 06:56 93 H 153/72 H 01/25/20 06:55 89 95 01/25/20 06:50 82 96 01/25/20 06:45 84 95 01/25/20 06:41 83 155/70 H 01/25/20 06:40 87 94 01/25/20 06:35 85 94 01/25/20 06:30 81 95 01/25/20 06:28 84 94 01/25/20 06:26 77 147/68 H 01/25/20 06:25 83 95 01/25/20 06:19 84 94 01/25/20 06:14 79 96 01/25/20 06:10 75 137/65 01/25/20 06:09 77 95 01/25/20 06:08 71 139/67 01/25/20 06:06 75 135/64 01/25/20 06:04 78 131/60 96 01/25/20 06:02 94 H 148/70 H 09/23/20 06:01 36.9 C 20 20 06:00 103 H 93 01/24/20 05:59 86 96 01/24/20 05:58 86 160/73 H 20 05:57 78 158/67 H 01/24/20 05:54 74 96 01/24/20 05:49 75 97 01/24/20 05:45 73 139/66 01/24/20 05:44 79 96 20 05:39 75 96 09/20 05:34 67 96 01/24/20 05:29 69 138/68 96 01/24/20 05:24 89 96 20 05:19 68 98 20 05:14 78 148/83 H 97 01/25/20 05:09 81 98 20 05:04 80 97 20 04:59 68 135/83 98 01/24/20 04:54 73 96 20 04:49 74 95 20 04:44 73 166/75 H 97 01/24/20 04:39 83 96 01/24/20 04:34 78 95 09/20 04:31 78 94 09/20 04:29 73 145/72 H 96 20 04:24 78 95 01/24/20 04:22 80 94 01/24/20 04:19 80 95 01/24/20 04:15 68 139/67 01/24/20 04:14 81 96 01/24/20 04:09 75 96 01/24/20 04:04 78 96 01/24/20 03:59 76 141/67 H 96 01/24/20 03:54 78 96 01/24/20 03:50 84 94 0923/20 03:49 85 95 0923/20 03:44 76 140/68 96 01/24/20 03:39 82 96 01/24/20 03:34 84 96 09/20 03:30 76 136/69 0923/20 03:29 76 97 09/20 03:24 76 96 09/20 03:19 75 96 09/20 03:15 93 H 137/60 01/24/20 03:14 106 H 97 09/23/20 03:09 83 95 09/20 03:06 87 94 20 03:04 84 94 0920 02:59 82 143/74 H 94 20 02:54 80 94 20 02:53 75 94 20 02:49 80 94 20 02:47 90 94 20 02:46 90 144/87 H 20 02:45 90 139/89 20 02:44 82 95 01/24/20 02:39 104 H 95 01/24/20 02:38 85 94 20 02:34 88 95 20 02:31 37.0 C 83 18 94 01/25/20 02:29 79 147/74 H 95 20 02:24 80 96 0920 02:19 95 H 97 20 02:14 78 141/67 H 96 01/25/20 02:09 82 96 01/25/20 02:04 80 97 20 01:59 79 151/70 H 95 01/24/20 01:54 78 95 01/24/20 01:49 79 96 01/24/20 01:44 75 135/73 96 01/24/20 01:39 84 96 20 01:34 90 97 01/24/20 01:30 76 147/73 H 20 01:29 90 97 01/24/20 01:24 76 96 20 01:19 82 96 20 01:15 80 147/70 H 20 01:14 78 95 01/24/20 01:09 79 96 01/24/20 01:04 86 94 0923/20 00:59 77 142/74 H 96 20 00:54 81 96 09/20 00:49 85 95 01/24/20 00:48 85 94 09/20 00:44 76 141/67 H 96 01/24/20 00:39 74 96 09/20 00:34 83 97 20 00:30 72 134/65 09/20 00:29 80 96 20 00:24 80 95 09/23/20 00:19 76 96 23/20 00:14 72 97 23/20 00:09 75 97 23/20 00:04 76 139/71 97 22/20 23:59 79 98 22/20 23:54 74 97 22/20 23:49 67 144/70 H 97 22/20 23:44 70 98 22/20 23:39 78 138/67 96 01/23/20 23:34 79 97 22/20 23:29 73 97 22/20 23:25 68 133/63 01/23/20 23:24 73 96 01/23/20 23:19 97 H 95 20 23:14 83 97 20 23:09 91 H 140/84 97 20 23:04 84 96 20 22:59 80 98 20 22:54 80 156/93 H 97 20 22:49 77 97 20 22:44 75 97 20 22:39 82 145/83 H 97 20 22:34 90 97 20 22:33 75 138/77 20 22:30 18 20 22:29 84 97 20 22:24 95 H 97 20 22:19 85 97 20 22:17 87 130/68 20 22:14 85 98 20 22:12 77 137/70 20 22:09 74 97 20 22:07 67 148/81 H 20 22:04 71 97 22/20 22:01 69 150/79 H 2220 22:00 18 2220 21:59 69 97 2220 21:56 72 153/81 H 22/20 21:54 70 98 22/20 21:51 67 149/84 H 22/20 21:50 18 22/20 21:49 69 98 22/20 21:48 18 2220 21:46 67 18 148/85 H 22/20 21:44 71 18 145/85 H 99 09/22/20 21:42 83 18 152/89 H 01/24/20 21:40 75 18 156/89 H 01/24/20 21:39 80 99 01/24/20 21:38 18 01/24/20 21:37 74 161/91 H 01/24/20 21:36 93 H 163/82 H 01/24/20 21:34 76 97 01/24/20 21:33 76 159/102 H 01/24/20 21:32 83 173/109 H 01/24/20 21:29 85 98 01/24/20 21:24 77 98 01/24/20 21:19 73 98 01/24/20 21:14 75 99 01/24/20 21:09 75 99 01/24/20 21:04 78 98 01/24/20 21:02 78 162/91 H 01/24/20 21:00 18 01/24/20 20:59 75 98 01/24/20 20:54 80 98 01/24/20 20:49 84 99 01/24/20 20:25 75 143/87 H 01/24/20 20:03 75 153/80 H 01/24/20 20:00 18 01/24/20 19:38 85 141/77 H 01/24/20 19:07 36.6 C 18 01/24/20 19:02 83 153/92 H 01/24/20 18:02 90 144/86 H 01/24/20 17:02 76 16 140/75 01/24/20 16:02 97 H 20 137/94 01/24/20 15:02 36.8 C 93 H 16 135/85 01/24/20 14:02 88 16 144/90 H 01/24/20 13:02 96 H 18 133/68 01/24/20 12:02 36.8 C 94 H 16 142/75 H 01/24/20 11:02 93 H 20 136/70 01/24/20 10:02 96 H 138/84 Pain Intensity Lower Back: Pain Intensity: 0 Transfer of Care Handoff Completed per policy Notes Mental Status: alert / awake / arousable and participated in evaluation Nausea / Vomiting: adequately controlled Pain: adequately controlled Airway Patency, RR, SpO2: stable & adequate BP & HR: stable & adequate Hydration State: stable & adequate Neuraxial Anesthesia: was administered and sensory block is resolving Anesthetic Complications: no major complications apparent and Pt Satisfied with anesthetic care
[2020-01-25] MEDS ORDERED: NO NARCOTICS OR SEDATIVES SCH (10:00)
[2020-01-25] MEDS ORDERED: SODIUM CHLORIDE 0.9% 1000ML 1,000 ML IV SCH (10:00)
[2020-01-25] MEDS: LABETALOL HCL 100 MG TAB PO SCH (10:34)
[2020-01-25] MEDS: LACTATED RINGER'S 1,000 ML IV SCH ×2 (12:20→19:38)
[2020-01-25] MEDS: miSOPROStoL 50 MCG TAB PO SCH (12:40)
[2020-01-25] MEDS: LABETALOL HCL 200 MG TAB PO SCH ×2 (17:02→21:06)
[2020-01-25] MEDS: ACETAMINOPHEN 325 MG TAB PO PRN (18:44)
[2020-01-25 20:35] LABS: Appearance Urine Clear (Clear); Bacteria Urine Automated Negative (Negative); Bilirubin Urine Negative (Negative); Blood Urine 2+ (Negative); Color Urine Orange; Epithelial Cell Urine Auto >30 /lpf (0-5); Glucose Urine UA Negative (Negative); Ketones Urine Negative (Negative); Leukocyte Esterase Urine 1+ (Negative); Nitrite Urine Negative (Negative); Protein Urine Negative (Negative); RBC Urine Automated >30 /hpf (0-4); Specific Gravity Urine 1.008 (1.000-1.030); Urobilinogen Urine Negative (Negative); pH Urine 7.5 (4.5-7.5)
[2020-01-25] MEDS: cefOXitin 2,000 MG in DEXTROSE 5% 50 ML IV SCH (20:57)
[2020-01-26] MEDS: cefOXitin 2,000 MG in DEXTROSE 5% 50 ML IV SCH ×4 (01:57→22:20)
[2020-01-26] MEDS ORDERED: DC INTRASPINAL MORPHINE ONE (03:55)
[2020-01-26] MEDS: ACETAMINOPHEN 325 MG TAB PO PRN (04:37)
[2020-01-26] MEDS ORDERED: oxyCODONE/ACETAMINOPHEN 5mg/325mg TAB PO PRN (04:48)
[2020-01-26] MEDS ORDERED: Nursing to Pharmacy Communication SCH (05:00)
[2020-01-26] MEDS: oxyCODONE/ACETAMINOPHEN 5mg/325mg TAB PO PRN ×4 (05:14→23:40)
[2020-01-26] MEDS: IBUPROFEN 600 MG TAB PO PRN ×4 (05:15→23:41)
[2020-01-26] MEDS ORDERED: CITRIC ACID/SODIUM CITRATE 15 ML UDC PO SCH (06:00)
[2020-01-26] MEDS: LABETALOL HCL 200 MG TAB PO SCH ×3 (09:04→20:26)
[2020-01-26 10:32] LABS: Basophils # (auto) 0.01 K/uL (0-0.2); Basophils % (auto) 0.1 %; Eosinophils # (auto) 0.04 K/uL (0-0.5); Eosinophils % (auto) 0.3 %; Hematocrit (blood only) 28.3 % (37-47); Hemoglobin 9.5 g/dL (12.0-16.0); Immature Granulocytes # (auto) 0.03 K/uL (0.00-0.02); Immature Granulocytes % (auto) 0.2 %; Lymphocytes # (auto) 2.14 K/uL (1.2-3.4); Lymphocytes % (auto) 14.9 %; Mean Corpuscular Hemoglobin 28.2 pg (25-34); Mean Platelet Volume 10.4 fL (7.4-10.4); Monocytes # (auto) 1.38 K/uL (0.11-0.59); Monocytes % (auto) 9.6 %; Neutrophils # (auto) 10.72 K/uL (1.4-6.5); Neutrophils % (auto) 74.9 %; Platelet Count 160 K/uL (130-400); RDW Coefficient of Variation 14.3 % (11.5-14.5); RDW Standard Deviation 43.9 fL (36.4-46.3); Red Blood Count 3.37 M/uL (4.2-5.4); White Blood Count 14.32 K/uL (4.8-10.8)
[2020-01-26 10:40] LABS: Mean Corpuscular Hgb Conc 33.6 g/dL (32-36)
--- NOTE | 2020-01-26 12:12 | Obstetrical Progress Note ---
Date of Service January 26, 2020 Assessment & Plan (1) delivery delivered: c/sec day #1 Pt doing well continue day #1 care Subjective Ambulation: ambulating normally Voiding: no voiding problems Passing Gas:: Yes Diet Tolerance:: clear liquids Lochia:: Small Feeding Type:: breast feeding Review of Systems All systems reviewed & are unremarkable except as noted in HPI & below Physical Exam Constitutional WD/WN, vitals as above well developed and well nourished Eyes PERRL, conjunctivae normal, anicteric sclerae ENMT external ear and nose normal, oropharynx normal Neck trachea midline, no thyromegaly Respiratory normal respiratory effort, lungs clear to auscultation Cardiovascular RRR, no murmur, no edema Chest (Breasts) normal inspection/palpation of breasts Gastrointestinal (Abdomen) normal bowel sounds, soft, nontender, no hepatosplenomegaly Musculoskeletal no cyanosis or clubbing, extremities motor strength 5/5 Skin no rashes, warm and dry + incision (Clean,dry and intact) Neurologic patellar DTR's 2+ bilat, sensation intact Psychiatric A+Ox3, euthymic affect Genitourinary normal external appearance Lymphatic no cervical or axillary lymphadenopathy Results & Data ([facility]) Vital Signs (Past 12 Hours) Vital Signs Temp Pulse Pulse Resp BP BP Pulse Ox 01/26/20 09:00 87 18 125/77 01/26/20 07:59 36.6 C 84 18 122/63 97 01/26/20 06:00 36.7 C 01/26/20 03:55 37.7 C H 88 18 147/77 H 98 01/26/20 02:37 16 96 01/26/20 01:40 14 96 01/26/20 00:40 16 96
[2020-01-26] MEDS: DOCUSATE SODIUM 100 MG CAP PO SCH (20:26)
[2020-01-27] MEDS: cefOXitin 2,000 MG in DEXTROSE 5% 50 ML IV SCH (04:12)
--- NOTE | 2020-01-27 08:30 | Surgery Progress Note ---
Date of Service January 27, 2020 Assessment & Plan Admission and Anticipated Discharge Date Admission Date: January 23, 2020 Subjective POD#2 doing well out of bed passing gas some difficulty with breast feeding Physical Exam Constitutional: WD/WN, vitals as above comfortable incision c/d/i no edema neg Neyda's possible d/c in AM Results & Data ([facility]) Vital Signs (Past 12 Hours) Vital Signs Temp Pulse Resp BP 01/27/20 04:00 36.5 C 73 18 148/83 H 01/26/20 23:45 36.3 C L 75 18 131/73 Laboratory Results 01/23/20 01/23/20 01/23/20 08:00 09:01 09:01 WBC 9.55 RBC 4.08 L Hgb 11.6 L Hct 34.2 L MCV 83.8 MCH 28.4 MCHC 33.9 RDW Std Deviation 44.2 RDW Coeff of [place]rie 14.4 Plt Count 181 MPV 11.4 H Immature Gran % (Auto) Neut % (Auto) Lymph % (Auto) [place] % (Auto) Eos % (Auto) Baso % (Auto) Neut # (Auto) Lymph # (Auto) [place] # (Auto) Eos # (Auto) Baso # (Auto) Immature Gran # (Auto) Cord VBG pH Cord VBG pCO2 Cord VBG pO2 Cord VBG HCO3 Cord VBG Base Excess Cord VBG O2 Sat Barometric Pressure Blood Gas Comments Sodium Potassium Chloride Carbon Dioxide Anion Gap BUN Creatinine Est Cr Clr Drug Dosing Est GFR ( Amer) Est GFR (Non-Af Amer) BUN/Creatinine Ratio Glucose Calcium Total Bilirubin AST ALT Alkaline Phosphatase Lactate Dehydrogenase Total Protein Albumin Globulin Albumin/Globulin Ratio Urine Color Dark Yellow Urine Appearance Cloudy A Urine pH 6.5 Ur Specific [place] 1.017 Urine Protein 1+ H Urine Glucose (UA) Negative Urine Ketones Negative Urine Blood Trace H Urine Nitrite Negative Urine Bilirubin Negative Urine Urobilinogen Negative Ur Leukocyte Esterase 2+ H Urine WBC (Auto) 10-30 H Urine RBC (Auto) 0-4 U Hyaline Cast (Auto) 1-5 U Epithel Cells (Auto) >30 H Urine Bacteria (Auto) 1+ H Urine Crystals Not Reportable Calcium Oxalate Crystal Present A COVID-19 Eval Order SARS-CoV-2, RNA, NAAT Blood Type B Positive Antibody Screen NEGATIVE 01/23/20 01/23/20 01/24/20 09:01 09:01 05:30 WBC RBC Hgb Hct MCV MCH MCHC RDW Std Deviation RDW Coeff of [place] Plt Count MPV Immature Gran % (Auto) Neut % (Auto) Lymph % (Auto) [place] % (Auto) Eos % (Auto) Baso % (Auto) Neut # (Auto) Lymph # (Auto) [place] # (Auto) Eos # (Auto) Baso # (Auto) Immature Gran # (Auto) Cord VBG pH Cord VBG pCO2 Cord VBG pO2 Cord VBG HCO3 Cord VBG Base Excess Cord VBG O2 Sat Barometric Pressure Blood Gas Comments Sodium 137 Potassium 3.8 Chloride 109 H Carbon Dioxide 20 L Anion Gap 8.0 BUN 10 Creatinine 0.50 L Est Cr Clr Drug Dosing 161.1 Est GFR ( Amer) > 150.0 Est GFR (Non-Af Amer) 133.6 BUN/Creatinine Ratio 19.0 Glucose 85 Calcium 11.5 H Total Bilirubin 0.2 AST 17 ALT 16 Alkaline Phosphatase 234 H Lactate Dehydrogenase 130 Total Protein 7.6 Albumin 2.5 L Globulin 5.1 H Albumin/Globulin Ratio 0.5 L Urine Color Urine Appearance Urine pH Ur Specific [place] Urine Protein Urine Glucose (UA) Urine Ketones Urine Blood Urine Nitrite Urine Bilirubin Urine Urobilinogen Ur Leukocyte Esterase Urine WBC (Auto) Urine RBC (Auto) U Hyaline Cast (Auto) U Epithel Cells (Auto) Urine Bacteria (Auto) Urine Crystals Calcium Oxalate Crystal COVID-19 Eval Order Covid19 [facility] SARS-CoV-2, RNA, NAAT Blood Type Antibody Screen 01/24/20 01/25/20 01/25/20 05:30 07:36 08:41 WBC 10.70 RBC 3.91 L Hgb 10.9 L Hct 32.9 L MCV 84.1 MCH 27.9 MCHC 33.1 RDW Std Deviation 45.4 RDW Coeff of [place] 14.7 H Plt Count 169 MPV 10.9 H Immature Gran % (Auto) 0.3 Neut % (Auto) 75.7 Lymph % (Auto) 11.9 [place] % (Auto) 11.9 Eos % (Auto) 0.2 Baso % (Auto) 0.0 Neut # (Auto) 8.11 H Lymph # (Auto) 1.27 [place] # (Auto) 1.27 H Eos # (Auto) 0.02 Baso # (Auto) 0.00 Immature Gran # (Auto) 0.03 H Cord VBG pH 7.35 Cord VBG pCO2 36 Cord VBG pO2 24 Cord VBG HCO3 20 Cord VBG Base Excess -5.3 Cord VBG O2 Sat < 60.0 Barometric Pressure 732.4 Blood Gas Comments MAXWELL Sodium Potassium Chloride Carbon Dioxide Anion Gap BUN Creatinine Est Cr Clr Drug Dosing Est GFR ( Amer) Est GFR (Non-Af Amer) BUN/Creatinine Ratio Glucose Calcium Total Bilirubin AST ALT Alkaline Phosphatase Lactate Dehydrogenase Total Protein Albumin Globulin Albumin/Globulin Ratio Urine Color Urine Appearance Urine pH Ur Specific [place] Urine Protein Urine Glucose (UA) Urine Ketones Urine Blood Urine Nitrite Urine Bilirubin Urine Urobilinogen Ur Leukocyte Esterase Urine WBC (Auto) Urine RBC (Auto) U Hyaline Cast (Auto) U Epithel Cells (Auto) Urine Bacteria (Auto) Urine Crystals Calcium Oxalate Crystal COVID-19 Eval Order SARS-CoV-2, RNA, NAAT NEGATIVE Blood Type Antibody Screen 01/25/20 01/26/20 19:19 10:22 WBC 14.32 H RBC 3.37 L Hgb 9.5 L Hct 28.3 L MCV 84.0 MCH 28.2 MCHC 33.6 RDW Std Deviation 43.9 RDW Coeff of [place] 14.3 Plt Count 160 MPV 10.4 Immature Gran % (Auto) 0.2 Neut % (Auto) 74.9 Lymph % (Auto) 14.9 [place] % (Auto) 9.6 Eos % (Auto) 0.3 Baso % (Auto) 0.1 Neut # (Auto) 10.72 H Lymph # (Auto) 2.14 [place] # (Auto) 1.38 H Eos # (Auto) 0.04 Baso # (Auto) 0.01 Immature Gran # (Auto) 0.03 H Cord VBG pH Cord VBG pCO2 Cord VBG pO2 Cord VBG HCO3 Cord VBG Base Excess Cord VBG O2 Sat Barometric Pressure Blood Gas Comments Sodium Potassium Chloride Carbon Dioxide Anion Gap BUN Creatinine Est Cr Clr Drug Dosing Est GFR ( Amer) Est GFR (Non-Af Amer) BUN/Creatinine Ratio Glucose Calcium Total Bilirubin AST ALT Alkaline Phosphatase Lactate Dehydrogenase Total Protein Albumin Globulin Albumin/Globulin Ratio Urine Color [place] Urine Appearance Clear Urine pH 7.5 Ur Specific [place] 1.008 Urine Protein Negative Urine Glucose (UA) Negative Urine Ketones Negative Urine Blood 2+ H Urine Nitrite Negative Urine Bilirubin Negative Urine Urobilinogen Negative Ur Leukocyte Esterase 1+ H Urine WBC (Auto) 5-10 H Urine RBC (Auto) >30 H U Hyaline Cast (Auto) 1-5 U Epithel Cells (Auto) >30 H Urine Bacteria (Auto) Negative Urine Crystals Calcium Oxalate Crystal COVID-19 Eval Order SARS-CoV-2, RNA, NAAT Blood Type Antibody Screen
[2020-01-27] MEDS: LABETALOL HCL 200 MG TAB PO SCH ×3 (08:41→21:32)
[2020-01-27] MEDS: DOCUSATE SODIUM 100 MG CAP PO SCH ×2 (08:41→20:17)
[2020-01-27] MEDS: IBUPROFEN 600 MG TAB PO PRN ×3 (10:50→20:16)
[2020-01-27] MEDS: oxyCODONE/ACETAMINOPHEN 5mg/325mg TAB PO PRN ×2 (14:25→20:17)
[2020-01-28] MEDS: IBUPROFEN 600 MG TAB PO PRN ×4 (00:55→20:37)
[2020-01-28] MEDS: oxyCODONE/ACETAMINOPHEN 5mg/325mg TAB PO PRN ×4 (00:56→18:45)
[2020-01-28] MEDS: DOCUSATE SODIUM 100 MG CAP PO SCH ×2 (09:08→20:37)
[2020-01-28] MEDS: LABETALOL HCL 200 MG TAB PO SCH ×3 (09:08→20:37)
--- NOTE | 2020-01-28 09:12 | Obstetrical Progress Note ---
Date of Service January 28, 2020 Assessment & Plan Admission and Anticipated Discharge Date Admission Date: January 23, 2020 Subjective Patient is seen and examined. She feels well, no complaints. Pain is under control with oral meds. Ambulating without dizziness Voiding without difficulty Tolerating regular diet with out N&V Flatus + BM + Bleeding is minimal No fever/ chills/ CP/ SOB/ N&V/ Leg pain Breast feeding without problems, saw consultant dietitian Desires to stay another day for that Vital Signs Temp Pulse Resp BP Pulse Ox 01/27/20 23:30 36.7 C 75 18 142/79 H 97 01/27/20 20:45 36.6 C 72 18 130/79 99 01/27/20 14:28 36.5 C 97 H 18 128/83 Lab Results 01/23/20 01/23/20 01/23/20 Range/Units 08:00 09:01 09:01 WBC 9.55 (4.8-10.8) K/uL RBC 4.08 L (4.2-5.4) M/uL Hgb 11.6 L (12.0-16.0) g/dL Hct 34.2 L (37-47) % MCV 83.8 (80-100) fL MCH 28.4 (25-34) pg MCHC 33.9 (32-36) g/dL RDW Std Deviation 44.2 (36.4-46.3) fL RDW Coeff of Barrie 14.4 (11.5-14.5) % Plt Count 181 (130-400) K/uL MPV 11.4 H (7.4-10.4) fL Immature Gran % (Auto) % Neut % (Auto) % Lymph % (Auto) % Emanuel % (Auto) % Eos % (Auto) % Baso % (Auto) % Neut # (Auto) (1.4-6.5) K/uL Lymph # (Auto) (1.2-3.4) K/uL Emanuel # (Auto) (0.11-0.59) K/uL Eos # (Auto) (0-0.5) K/uL Baso # (Auto) (0-0.2) K/uL Immature Gran # (Auto) (0.00-0.02) K/uL Cord VBG pH (7.20-7.44) Cord VBG pCO2 (30.4-57.2) mmHg Cord VBG pO2 (14.1-43.3) mmHg Cord VBG HCO3 (18.4-26.8) mmol/L Cord VBG Base Excess (-7.7-1.9) mEq/L Cord VBG O2 Sat (<68) % Barometric Pressure mm/Hg Blood Gas Comments Sodium (136-145) mmol/L Potassium (3.5-5.1) mmol/L Chloride (98-107) mmol/L Carbon Dioxide (21-32) mmol/L Anion Gap (3-11) BUN (7-18) mg/dl Creatinine (0.6-1.2) mg/dl Est Cr Clr Drug Dosing ml/min Est GFR ( Amer) Est GFR (Non-Af Amer) BUN/Creatinine Ratio (10-20) Glucose (70-99) mg/dl Calcium (8.5-10.1) mg/dl Total Bilirubin (0.2-1) mg/dl AST (15-37) U/L ALT (12-78) U/L Alkaline Phosphatase (45-117) U/L Lactate Dehydrogenase (84-246) U/L Total Protein (6.4-8.2) gm/dl Albumin (3.4-5.0) gm/dl Globulin (2.5-4.0) gm/dl Albumin/Globulin Ratio (0.9-2) Urine Color Dark Yellow Urine Appearance Cloudy A (Clear) Urine pH 6.5 (4.5-7.5) Ur Specific [place] 1.017 (1.000-1.030) Urine Protein 1+ H (Negative) Urine Glucose (UA) Negative (Negative) Urine Ketones Negative (Negative) Urine Blood Trace H (Negative) Urine Nitrite Negative (Negative) Urine Bilirubin Negative (Negative) Urine Urobilinogen Negative (Negative) Ur Leukocyte Esterase 2+ H (Negative) Urine WBC (Auto) 10-30 H (0-5) /hpf Urine RBC (Auto) 0-4 (0-4) /hpf U Hyaline Cast (Auto) 1-5 (0-5) /lpf U Epithel Cells (Auto) >30 H (0-5) /lpf Urine Bacteria (Auto) 1+ H (Negative) Urine Crystals Not Reportable Calcium Oxalate Crystal Present A (None Prsent) COVID-19 Eval Order SARS-CoV-2, RNA, NAAT (NEGATIVE) Blood Type B Positive Antibody Screen NEGATIVE 01/23/20 01/23/20 01/24/20 Range/Units 09:01 09:01 05:30 WBC (4.8-10.8) K/uL RBC (4.2-5.4) M/uL Hgb (12.0-16.0) g/dL Hct (37-47) % MCV (80-100) fL MCH (25-34) pg MCHC (32-36) g/dL RDW Std Deviation (36.4-46.3) fL RDW Coeff of Barrie (11.5-14.5) % Plt Count (130-400) K/uL MPV (7.4-10.4) fL Immature Gran % (Auto) % Neut % (Auto) % Lymph % (Auto) % Emanuel % (Auto) % Eos % (Auto) % Baso % (Auto) % Neut # (Auto) (1.4-6.5) K/uL Lymph # (Auto) (1.2-3.4) K/uL Emanuel # (Auto) (0.11-0.59) K/uL Eos # (Auto) (0-0.5) K/uL Baso # (Auto) (0-0.2) K/uL Immature Gran # (Auto) (0.00-0.02) K/uL Cord VBG pH (7.20-7.44) Cord VBG pCO2 (30.4-57.2) mmHg Cord VBG pO2 (14.1-43.3) mmHg Cord VBG HCO3 (18.4-26.8) mmol/L Cord VBG Base Excess (-7.7-1.9) mEq/L Cord VBG O2 Sat (<68) % Barometric Pressure mm/Hg Blood Gas Comments Sodium 137 (136-145) mmol/L Potassium 3.8 (3.5-5.1) mmol/L Chloride 109 H (98-107) mmol/L Carbon Dioxide 20 L (21-32) mmol/L Anion Gap 8.0 (3-11) BUN 10 (7-18) mg/dl Creatinine 0.50 L (0.6-1.2) mg/dl Est Cr Clr Drug Dosing 161.1 ml/min Est GFR ( Amer) > 150.0 Est GFR (Non-Af Amer) 133.6 BUN/Creatinine Ratio 19.0 (10-20) Glucose 85 (70-99) mg/dl Calcium 11.5 H (8.5-10.1) mg/dl Total Bilirubin 0.2 (0.2-1) mg/dl AST 17 (15-37) U/L ALT 16 (12-78) U/L Alkaline Phosphatase 234 H (45-117) U/L Lactate Dehydrogenase 130 (84-246) U/L Total Protein 7.6 (6.4-8.2) gm/dl Albumin 2.5 L (3.4-5.0) gm/dl Globulin 5.1 H (2.5-4.0) gm/dl Albumin/Globulin Ratio 0.5 L (0.9-2) Urine Color Urine Appearance (Clear) Urine pH (4.5-7.5) Ur Specific [place] (1.000-1.030) Urine Protein (Negative) Urine Glucose (UA) (Negative) Urine Ketones (Negative) Urine Blood (Negative) Urine Nitrite (Negative) Urine Bilirubin (Negative) Urine Urobilinogen (Negative) Ur Leukocyte Esterase (Negative) Urine WBC (Auto) (0-5) /hpf Urine RBC (Auto) (0-4) /hpf U Hyaline Cast (Auto) (0-5) /lpf U Epithel Cells (Auto) (0-5) /lpf Urine Bacteria (Auto) (Negative) Urine Crystals Calcium Oxalate Crystal (None Prsent) COVID-19 Eval Order Covid19 [facility]Now [facility] SARS-CoV-2, RNA, NAAT (NEGATIVE) Blood Type Antibody Screen 01/24/20 01/25/20 01/25/20 Range/Units 05:30 07:36 08:41 WBC 10.70 (4.8-10.8) K/uL RBC 3.91 L (4.2-5.4) M/uL Hgb 10.9 L (12.0-16.0) g/dL Hct 32.9 L (37-47) % MCV 84.1 (80-100) fL MCH 27.9 (25-34) pg MCHC 33.1 (32-36) g/dL RDW Std Deviation 45.4 (36.4-46.3) fL RDW Coeff of Barrie 14.7 H (11.5-14.5) % Plt Count 169 (130-400) K/uL MPV 10.9 H (7.4-10.4) fL Immature Gran % (Auto) 0.3 % Neut % (Auto) 75.7 % Lymph % (Auto) 11.9 % Emanuel % (Auto) 11.9 % Eos % (Auto) 0.2 % Baso % (Auto) 0.0 % Neut # (Auto) 8.11 H (1.4-6.5) K/uL Lymph # (Auto) 1.27 (1.2-3.4) K/uL Emanuel # (Auto) 1.27 H (0.11-0.59) K/uL Eos # (Auto) 0.02 (0-0.5) K/uL Baso # (Auto) 0.00 (0-0.2) K/uL Immature Gran # (Auto) 0.03 H (0.00-0.02) K/uL Cord VBG pH 7.35 (7.20-7.44) Cord VBG pCO2 36 (30.4-57.2) mmHg Cord VBG pO2 24 (14.1-43.3) mmHg Cord VBG HCO3 20 (18.4-26.8) mmol/L Cord VBG Base Excess -5.3 (-7.7-1.9) mEq/L Cord VBG O2 Sat < 60.0 (<68) % Barometric Pressure 732.4 mm/Hg Blood Gas Comments MAXWELL Sodium (136-145) mmol/L Potassium (3.5-5.1) mmol/L Chloride (98-107) mmol/L Carbon Dioxide (21-32) mmol/L Anion Gap (3-11) BUN (7-18) mg/dl Creatinine (0.6-1.2) mg/dl Est Cr Clr Drug Dosing ml/min Est GFR ( Amer) Est GFR (Non-Af Amer) BUN/Creatinine Ratio (10-20) Glucose (70-99) mg/dl Calcium (8.5-10.1) mg/dl Total Bilirubin (0.2-1) mg/dl AST (15-37) U/L ALT (12-78) U/L Alkaline Phosphatase (45-117) U/L Lactate Dehydrogenase (84-246) U/L Total Protein (6.4-8.2) gm/dl Albumin (3.4-5.0) gm/dl Globulin (2.5-4.0) gm/dl Albumin/Globulin Ratio (0.9-2) Urine Color Urine Appearance (Clear) Urine pH (4.5-7.5) Ur Specific [place] (1.000-1.030) Urine Protein (Negative) Urine Glucose (UA) (Negative) Urine Ketones (Negative) Urine Blood (Negative) Urine Nitrite (Negative) Urine Bilirubin (Negative) Urine Urobilinogen (Negative) Ur Leukocyte Esterase (Negative) Urine WBC (Auto) (0-5) /hpf Urine RBC (Auto) (0-4) /hpf U Hyaline Cast (Auto) (0-5) /lpf U Epithel Cells (Auto) (0-5) /lpf Urine Bacteria (Auto) (Negative) Urine Crystals Calcium Oxalate Crystal (None Prsent) COVID-19 Eval Order SARS-CoV-2, RNA, NAAT NEGATIVE (NEGATIVE) Blood Type Antibody Screen 01/25/20 01/26/20 Range/Units 19:19 10:22 WBC 14.32 H (4.8-10.8) K/uL RBC 3.37 L (4.2-5.4) M/uL Hgb 9.5 L (12.0-16.0) g/dL Hct 28.3 L (37-47) % MCV 84.0 (80-100) fL MCH 28.2 (25-34) pg MCHC 33.6 (32-36) g/dL RDW Std Deviation 43.9 (36.4-46.3) fL RDW Coeff of Barrie 14.3 (11.5-14.5) % Plt Count 160 (130-400) K/uL MPV 10.4 (7.4-10.4) fL Immature Gran % (Auto) 0.2 % Neut % (Auto) 74.9 % Lymph % (Auto) 14.9 % Emanuel % (Auto) 9.6 % Eos % (Auto) 0.3 % Baso % (Auto) 0.1 % Neut # (Auto) 10.72 H (1.4-6.5) K/uL Lymph # (Auto) 2.14 (1.2-3.4) K/uL Emanuel # (Auto) 1.38 H (0.11-0.59) K/uL Eos # (Auto) 0.04 (0-0.5) K/uL Baso # (Auto) 0.01 (0-0.2) K/uL Immature Gran # (Auto) 0.03 H (0.00-0.02) K/uL Cord VBG pH (7.20-7.44) Cord VBG pCO2 (30.4-57.2) mmHg Cord VBG pO2 (14.1-43.3) mmHg Cord VBG HCO3 (18.4-26.8) mmol/L Cord VBG Base Excess (-7.7-1.9) mEq/L Cord VBG O2 Sat (<68) % Barometric Pressure mm/Hg Blood Gas Comments Sodium (136-145) mmol/L Potassium (3.5-5.1) mmol/L Chloride (98-107) mmol/L Carbon Dioxide (21-32) mmol/L Anion Gap (3-11) BUN (7-18) mg/dl Creatinine (0.6-1.2) mg/dl Est Cr Clr Drug Dosing ml/min Est GFR ( Amer) Est GFR (Non-Af Amer) BUN/Creatinine Ratio (10-20) Glucose (70-99) mg/dl Calcium (8.5-10.1) mg/dl Total Bilirubin (0.2-1) mg/dl AST (15-37) U/L ALT (12-78) U/L Alkaline Phosphatase (45-117) U/L Lactate Dehydrogenase (84-246) U/L Total Protein (6.4-8.2) gm/dl Albumin (3.4-5.0) gm/dl Globulin (2.5-4.0) gm/dl Albumin/Globulin Ratio (0.9-2) Urine Color [place] Urine Appearance Clear (Clear) Urine pH 7.5 (4.5-7.5) Ur Specific [place] 1.008 (1.000-1.030) Urine Protein Negative (Negative) Urine Glucose (UA) Negative (Negative) Urine Ketones Negative (Negative) Urine Blood 2+ H (Negative) Urine Nitrite Negative (Negative) Urine Bilirubin Negative (Negative) Urine Urobilinogen Negative (Negative) Ur Leukocyte Esterase 1+ H (Negative) Urine WBC (Auto) 5-10 H (0-5) /hpf Urine RBC (Auto) >30 H (0-4) /hpf U Hyaline Cast (Auto) 1-5 (0-5) /lpf U Epithel Cells (Auto) >30 H (0-5) /lpf Urine Bacteria (Auto) Negative (Negative) Urine Crystals Calcium Oxalate Crystal (None Prsent) COVID-19 Eval Order SARS-CoV-2, RNA, NAAT (NEGATIVE) Blood Type Antibody Screen PE: General: Alert, orientedx3, NAD CVS: S1S2 RRR Lungs; CTAB Abd: soft, NT, ND, BS+, fundus firm, below Umbilicus Incision: Clean, dry, intact Perineum intact, Lochia rubra minimal Ext; NT, no edema AP: 24 yo s/p C Section, pod# 3 VSS Afebrile doing well On Labetalol 200 mg tid Continue routine postop care Encourage ambulation, PO intake All questions were answered D/C home tomorrow Results & Data ([facility]) Vital Signs (Past 12 Hours) Vital Signs Temp Pulse Resp BP Pulse Ox 01/27/20 23:30 36.7 C 75 18 142/79 H 97
[2020-01-28] MEDS ORDERED: FERROUS SULFATE 325 MG TAB PO SCH (09:15)
--- NOTE | 2020-01-28 22:19 | Obstetrical Progress Note ---
Date of Service January 28, 2020 Assessment & Plan Admission and Anticipated Discharge Date Admission Date: January 23, 2020 Subjective Patient seen and examined. She would like to be discharged early in the morning. She feels much better. Pain is tolerable only with ambulation. No fever, chills, chest pain, shortness of breath, nausea or vomiting. Using the bathroom and tolerating regular diet. Breast-feeding her baby boy. Baby was circumcised this morning. She and her had multiple questions about discharge, medications, follow- up appointments. Answered them all. Plan to DC home in the morning. Discharge instructions were given. Discussed when to call. Discuss home medications and follow-up appointments at the office for blood pressure check and incision check. Results & Data ([facility]) Vital Signs (Past 12 Hours) Vital Signs Temp Pulse Resp BP Pulse Ox 01/28/20 20:30 74 155/92 H 01/28/20 16:15 36.9 C 71 18 148/89 H 99 01/28/20 14:25 36.8 C 76 18 145/83 H 98
[2020-01-29] MEDS: LABETALOL HCL 200 MG TAB PO SCH (08:57)
[2020-01-29] MEDS: DOCUSATE SODIUM 100 MG CAP PO SCH (08:57)
[2020-01-29] MEDS: oxyCODONE/ACETAMINOPHEN 5mg/325mg TAB PO PRN (09:01)
[2020-01-29] MEDS: IBUPROFEN 600 MG TAB PO PRN (09:02)
--- NOTE | 2020-02-13 14:30 | Discharge Summary (DS) ---
CHIEF COMPLAINT: This is a 24-year-old G2, P1, due date 01/21/2020, who was admitted on 01/23/2020 for induction of labor for postdates. The patient's induction involved cervical ripening and Pitocin. Artificial rupture of membranes was also performed. The patient experienced arrest of dilatation on 01/25/2020. section was therefore performed on 01/25/2020 at about 8:41 a.m. Details of surgery is in the surgical record. The patient delivered a live infant with weight and in the pediatric records. Surgery otherwise was unremarkable. The patient did well in recovery and postop course was also unremarkable. On postop day #1, Thompson was removed. She tolerated p.o. food and diet. Diet was advanced on postop day 2, patient was discharged home in stable condition on postop day 3, which was 01/29/2020. PAST MEDICAL HISTORY: The patient has history of malaria in the past. PAST SURGICAL HISTORY: None. SOCIAL HISTORY: The patient is , lives with spouse. Denies tobacco, drug or alcohol use. FAMILY HISTORY: Noncontributory. ALLERGIES: THE PATIENT IS ALLERGIC TO QUININE. REVIEW OF SYSTEMS; Negative except as dictated in the HPI. PHYSICAL EXAMINATION: VITAL SIGNS: On 01/29/2020, blood pressure 143/94, pulse 74, respiration of 18, temperature of 36.8. HEART: S1, S2, regular rhythm and rate. LUNGS: Clear to auscultation bilaterally. ABDOMEN: Nontender, nondistended. Incision clean, dry and intact. EXTREMITIES: No cyanosis, clubbing or edema. CONDITION ON DISCHARGE: Stable. OPERATION: Primary section for failure to progress. DIAGNOSIS AT DISCHARGe: Postop section. PLAN ON DISCHARGE: The patient is discharged home with instructions regarding activity, diet, followup appointment and medication.
--- NOTE | 2020-02-18 16:24 | Operative Report (OR) ---
DATE OF OPERATION: 01/25/2020 INDICATION FOR PROCEDURE: Failure to progress after post-date induction. PREOPERATIVE DIAGNOSES: 1. at term. 2. Failure to progress. POSTOPERATIVE DIAGNOSES: 1. at term. 2. Failure to progress. PROCEDURE: Primary section. SURGEON: Judd Wheeler MD. GROOVER RUNNER: Shona Mims RN. ANESTHESIA: Epidural. ESTIMATED BLOOD LOSS: 600 mL INTRAVENOUS FLUIDS: 2300 mL. FINDINGS: Live in cephalic presentation. Details of infant is in the pediatric record. Apgars in the pediatric record as well. Uterus, tubes, and ovaries, pelvic are unremarkable. COMPLICATIONS: None. DRAINS: Thompson catheter. PATHOLOGY: Placenta. DISPOSITION: Stable to recovery room. COMPLICATIONS: None. DESCRIPTION OF PROCEDURE: The patient was taken to the operating room where she was prepped and draped in normal sterile fashion. A timeout was called. A Pfannenstiel incision was made with a scalpel and carried down to the fascia. Fascia was incised in the midline and extended laterally on both sides. Rectus abdominis muscle was sharply dissected off the fascia. Peritoneum was identified and entered sharply. Once inside the abdomen, findings were as dictated above. An Raciel retractor was placed for retraction. Vesicouterine peritoneum was sharply dissected off the lower segment of the uterus. A low transverse incision was made with a scalpel and extended laterally on both sides using bandage scissors. was delivered with head first. Cord was clamped and cut and handed over to the pediatric team. Cord blood was obtained as well as cord gas. Placenta was manually removed. Uterus was exteriorized and cleared of all clots and debris. There was good hemostasis post repair. Uterus was closed in 2 layers. Copious amount of irrigation was used to irrigate the abdomen. Once again, hemostasis was established. Uterus was returned into the abdominal cavity and Raciel retractor was removed. Peritoneum was closed with plain suture. Fascia was closed with Vicryl stitch. SubQ space was irrigated, again there was good hemostasis. SubQ space was approximated using plain suture and skin was closed with brando. All instruments were removed from the abdomen and accounted for x2 including sponges, needles and retractors. The patient was sent to recovery in stable condition. I attest to the content of the Intraoperative Record and any orders documented therein. Any exception s are noted below.
== END 2020-01-29 12:50 | disposition home or self-care (01) | DRG 788 ==
LOC: 4S1 07:54 → INTOOBSV 07:54 → 4S2 01-25 12:46

== ENCOUNTER 2021-09-25 05:39 | Inpatient (IN) ==
--- NOTE | 2021-09-20 08:35 | Anesthesiology Consultation ---
Date of Service September 20, 2021 Assessment & Plan (1) Encounter for pre-operative examination: Chart Review Chart Review: data entry clerk initiated Per nursing assessment 09/19/21, patient denies any recent travel. No known Covid positive exposures or Covid related symptoms. No known Covid infection in the past 90 days. Pt is fully vaccinated for Covid. Preop Covid testing scheduled 09/23/21= will await results C section 01/25/20 (due to failure to progress)= Epidural was pulled and spinal was placed at L 3 with 1 attempt. "Pt complains of tickle in chest/chest pain. EKG unchanged. Bolus of esmolol given with appropriate HR response but no pina in symptoms. Midazolam given and patient feeling better" History Surgery Operation Date: 09/25/21 07:30 Proposed Procedures p Repeat Section - Jordon English MD Height/Weight Height: 5 ft 4 in Weight: 73.028 kg Allergies Allergy/AdvReac Type Severity Reaction Status Date / Time quinine [From Quine] Allergy Rash Verified 09/19/21 14:40 Medications Home Medications Medication Instructions Recorded Confirmed Last Taken vit no.95-ferrous 1 tab PO HS 02/17/19 09/19/21 01/18/21 fumarate 28 mg-folic acid 800 mcg tablet () iron,carbonyl 65 mg-vitamin C 125 1 tab PO QAM 09/19/21 09/19/21 Unknown mg tablet,delayed release (Vitron-C) Past Medical History Medical History Malaria Hx of over 2 yrs ago No pertinent past medical history Past Family History Family History Other No pertinent family history Past Surgical History Surgical History Hx of section Social History Smoking Status: Never smoker Do You Dip or Chew Tobacco: No Hx Alcohol Use: No Hx Substance Use: No substance use type: does not use Testing Electrocardiogram Date: 01/18/21 Findings: + NSR @ (75bpm ) Normal EKG per cardio. Chest X-Ray Date: 01/18/21 FINDINGS: Lung volumes are normal. There is no pneumothorax or pleural effusion. Cardiac size is normal. Mediastinal contours are normal. Mild bilateral lower lung airspace opacities are present. IMPRESSION: Mild bilateral lower lung opacities suggestive of an infectious process such as viral pneumonia. Radiographic follow-up to ensure resolution is recommended. (Seen in ER at time of CXR and diagnosed with viral pneumonia)
[2021-09-25] MEDS ORDERED: ceFAZolin 2,000 MG in SYRINGE 0 ML IV SCH (06:00)
[2021-09-25] MEDS ORDERED: CITRIC ACID/SODIUM CITRATE 15 ML UDC PO SCH (06:00)
[2021-09-25] MEDS ORDERED: LACTATED RINGER'S 1,000 ML IV SCH ×2 (06:00→09:53)
[2021-09-25] MEDS ORDERED: OXYTOCIN 10 UNITS/ML 10ML VIAL ONE (06:57)
[2021-09-25] MEDS ORDERED: MoRPHine SULFATE PF 1 MG/ML 10 ML AMP/VIAL ONE (06:57)
[2021-09-25] MEDS ORDERED: ONDANSETRON INJ 2 MG/ML 2 ML VIAL ONE (06:57)
[2021-09-25] MEDS ORDERED: fentaNYL citrate 100 MCG/2 ML VIAL ONE (06:58)
[2021-09-25] MEDS ORDERED: ePHEDrine sulfate 50 MG/ML AMP IV PRN ×2 (07:58→08:48)
[2021-09-25] MEDS ORDERED: fentaNYL 2MCG/ML ROPIVACAINE 1.25MG/ML 100 ML BAG EPI PRN (07:58)
[2021-09-25] MEDS ORDERED: NALBUPHINE HCL INJ 10 MG/ML AMP IV PRN ×2 (07:58→08:48)
[2021-09-25] MEDS ORDERED: NALOXONE HCL 1 MG in SODIUM CHLORIDE 0.9% 1000ML 1,000 ML IV PRN ×2 (07:58→08:48)
[2021-09-25] MEDS ORDERED: NALOXONE HCL 0.4 MG/1 ML VIAL/CARP IV PRN ×2 (07:58→08:48)
[2021-09-25] MEDS ORDERED: diphenhydrAMINE 50 MG/ML VIAL IV PRN ×2 (07:58→08:48)
[2021-09-25] MEDS ORDERED: NALOXONE HCL 0.08 MG in SYRINGE 1.8 ML IV PRN (08:48)
[2021-09-25] MEDS ORDERED: KETOROLAC 30 MG/ML VIAL IV PRN (08:48)
[2021-09-25] MEDS ORDERED: MoRPHine SULFATE PF 1 MG/ML 10 ML AMP/VIAL INT SPINAL ONE (08:48)
[2021-09-25] MEDS ORDERED: LACTATED RINGER'S 500 ML IV PRN (08:48)
[2021-09-25] MEDS ORDERED: HYDROmorphone INJ 0.5 MG/0.5 ML SYR IV PRN (08:48)
[2021-09-25] MEDS ORDERED: ACETAMINOPHEN 325 MG TAB PO PRN (08:48)
[2021-09-25] MEDS ORDERED: ONDANSETRON INJ 2 MG/ML 2 ML VIAL IV PRN ×2 (08:48→09:53)
[2021-09-25] MEDS ORDERED: PROMETHAZINE HCL 25 MG in SODIUM CHLORIDE 0.9% 50 ML IV PRN (08:48)
[2021-09-25] MEDS ORDERED: SODIUM CHLORIDE 0.9% 1000ML 1,000 ML IV SCH (09:00)
[2021-09-25] MEDS ORDERED: DC INTRASPINAL MORPHINE SCH (09:00)
[2021-09-25] MEDS ORDERED: NO NARCOTICS OR SEDATIVES SCH (09:00)
--- NOTE | 2021-09-25 09:38 | Post Operative Brief Note ---
Immediate Post Op Note v1 Date of Surgery September 25, 2021 Pre & Post Diagnosis Operation Date: 09/25/21 07:30 Pre-Op Diagnosis: Intrauterine at 39 2/7 weeks for repeat section Post-Op Diagnosis: Intrauterine at 39 2/7 weeks for repeat section for living male child at 0851 I identified the patient and participated in the time-out.: Yes Procedure Operation Date: 09/25/21 07:30 Actual Procedures p Repeat Section living male child at 0851 - Adair Mazariegos MD Surgeon Adair Mazariegos MD Income Tax Preparer Dr Wheeler Estimated Blood Loss 400 Findings Consistent with Post-Op Diagnosis Live male Apgars 8/9 weight pending Fluids 1400 LR Specimens cord blood Placenta Drains Gutierrez Catheter (gutierrez inserted without difficulty after spinal and draining clear yellow urine. Urine output to be monitored by anesthesia intraoperatively) Anesthesia Type Spinal Complications none Disposition Accompanied Patient To Recovery: Yes Overlapping Procedure I was present for: the critical portions of procedure. I was immediately available: during the entire case. Back up surgeon: used during listed procedure.
[2021-09-25] MEDS ORDERED: HYDROCORTISONE ACETATE 25 MG SUPP PR PRN (09:53)
[2021-09-25] MEDS ORDERED: SENNA 8.6 MG TAB PO PRN (09:53)
[2021-09-25] MEDS ORDERED: BENZOCAINE 20% AER SPR 82.5 GM CAN EXT PRN (09:53)
[2021-09-25] MEDS ORDERED: MAGNESIUM HYDROXIDE SUSP 30 ML UDC PO PRN (09:53)
[2021-09-25] MEDS ORDERED: DIPHTHERIA/TETANUS/PERTUSSIS 0.5 ML SYR/VIAL IM ONE (09:53)
--- NOTE | 2021-09-25 10:51 | Anesthesiology Progress Note ---
Date of Service September 25, 2021 Anesthesia Post Procedure Vital Signs Vital Signs: Temp Pulse Resp BP Pulse Ox 09/25/21 10:46 92 H 99 09/25/21 10:41 69 100 09/25/21 10:36 65 100 09/25/21 10:34 68 123/58 L 09/25/21 10:31 72 20 100 09/25/21 10:26 83 98 09/25/21 10:23 66 127/72 09/25/21 10:21 104 H 20 99 09/25/21 10:16 72 98 09/25/21 10:13 74 127/80 09/25/21 10:11 77 20 98 09/25/21 10:06 65 98 09/25/21 10:02 75 133/74 09/25/21 10:01 72 20 98 09/25/21 09:56 68 98 09/25/21 09:53 69 88 L 09/25/21 09:52 64 136/71 09/25/21 09:51 74 20 100 09/25/21 09:48 65 94 09/25/21 09:46 64 100 09/25/21 09:43 141/64 H 09/25/21 09:41 75 20 100 09/25/21 09:36 73 99 09/25/21 09:31 97.7 F 69 129/66 100 09/25/21 06:24 99.0 F 20 09/25/21 06:08 96 H 143/80 H Transfer of Care Handoff Completed per policy Notes Mental Status: alert / awake / arousable and participated in evaluation Patient Amnestic to Procedure: Yes Nausea / Vomiting: adequately controlled Pain: adequately controlled Airway Patency, RR, SpO2: stable & adequate BP & HR: stable & adequate Hydration State: stable & adequate Neuraxial Anesthesia: was administered and sensory block is resolving Anesthetic Complications: no major complications apparent and Pt Satisfied with anesthetic care
[2021-09-25] MEDS: OXYTOCIN 20 UNITS in LACTATED RINGER'S 1,000 ML IV SCH ×2 (12:08→19:55)
[2021-09-25] MEDS: SIMETHICONE 80 MG CHEW PO SCH ×3 (13:14→20:03)
--- NOTE | 2021-09-25 13:29 | History & Physical Bridge Note ---
Date of Service September 25, 2021 History & Physical Bridge Note I have examined the patient, reviewed the History & Physical and in the interval since the performance of the History & Physical I have noted the following changes of clinical significance: no changes noted
--- NOTE | 2021-09-25 13:41 | Operative Report (OR) ---
DATE OF SURGERY: 09/25/2021 PREOPERATIVE DIAGNOSIS: Term intrauterine at 39 weeks and 2 days, admitted for repeat cesa rean section. POSTOPERATIVE DIAGNOSIS: Term intrauterine at 39 weeks and 2 days, admitted for repeat tayo arean section. PROCEDURE: Repeat section, low segment transverse. SURGEON: Adair Mazariegos MD. PSYCHIATRIC ARNP: Judd Wheeler MD. ANESTHESIA: Spinal. ESTIMATED BLOOD LOSS: 400 mL. FLUIDS: 1400 mL of LR. URINE OUTPUT: 200 mL. FINDINGS: Live male, Apgars 8 and 9. weight pending. COMPLICATIONS: None. CLINICAL HISTORY: The patient is a 26-year-old female, para 1-0-1-1, at 39 weeks and 2 days, admitte d for an elective repeat section. Consents were signed. The risks, benefits, and alternati ves to the procedure were explained to the patient. A timeout was called prior to the start of the p rocedure and antibiotics were given prior to the incision. DESCRIPTION OF PROCEDURE: Under satisfactory spinal anesthesia, the patient was prepped and draped i n the usual sterile fashion. A low Pfannenstiel incision through a prior scar was then made entering into the abdominal cavity in successive layers. Upon entering into the abdominal cavity, bladder bl masood was entered and using pickups and Russians, the bladder flap was then sharply dissected down. A bladder blade was entered. A low segment transverse incision over the lower uterine segment was made. The incision was nicked. The amniotic sac was noted to be clear. The incision was widened in the AP diameter. The infant wa s then delivered from the vertex presentation with the aid of fundal pressure by Dr. Wheeler. After th e baby was delivered, there was a 1 minute cord delay, the cord was then doubly clamped and cut, thorne ded to career professional, present for the delivery. Apgars were 8 and 9, weight 7 pounds 9-1/2 ounc es. Cord blood was obtained. The placenta was then delivered spontaneously and intact and submitted to pathology as a separate specimen. No active bleeding was noted. IV Pitocin was running. Uterus was firm. The uterus was then exteriorized. Ring forceps were then placed on both angles in the inferior margin. Another ring was used to dilate the cervix. Uterus wa s closed in a double layer closure starting with 0 Vicryl suture in a continuous interlocking fashion followed by a second imbricating suture. No active bleeding was noted. The contents of the pelvic and abdominal cavity were then irrigated to clear. Uterus was then placed back into normal anatomica l position. Tubes, ovaries bilaterally were found to be within normal limits. The initial sponge, n eedle, and instrument count were found to be correct. The fascia was then reapproximated from both angles using 0 Vicryl suture in a continuous fashion. S ubcuticular space was then irrigated. Bleeders were cauterized and the subcuticular space was closed with 3-0 plain suture and the skin was reapproximated with 4-0 Monocryl suture. Steri-Strips were t hen applied. Clear urine was noted from the Thompson. Estimated blood loss 400 mL. The final sponge, n eedle and instrument count were found to be correct. The patient was then placed supine on a stretch er and she was taken to the recovery room in stable condition. Please note, Dr. Wheeler was present for the section. His assistance was needed for retractio n, fundal pressure for delivery of the vertex and for exposure and closure of the uterus and abdomen. Job ID: [id number]
[2021-09-25] MEDS: DOCUSATE SODIUM 100 MG CAP PO SCH (20:03)
[2021-09-25] MEDS ORDERED: NON-FORMULARY MEDICATION (Pnv Cmb#95-Ferrous Fumarate-Fa [Prenatal] 28 mg iron- 800 mcg Ta PO SCH (21:00)
[2021-09-26] MEDS ORDERED: PROMETHAZINE HCL 25 MG in SODIUM CHLORIDE 0.9% 50 ML IV PRN (03:00)
[2021-09-26] MEDS ORDERED: KETOROLAC 30 MG/ML VIAL IV PRN (03:00)
[2021-09-26] MEDS ORDERED: diphenhydrAMINE 50 MG/ML VIAL IV PRN (03:00)
[2021-09-26] MEDS ORDERED: MEPERIDINE HCL 50 MG/ML CARP IV PRN (03:00)
[2021-09-26] MEDS ORDERED: diphenhydrAMINE Capsule 25 MG CAP PO PRN (03:00)
[2021-09-26] MEDS: oxyCODONE/ACETAMINOPHEN 5mg/325mg TAB PO PRN ×5 (03:15→20:16)
[2021-09-26 07:22] LABS: Basophils # (auto) 0.01 K/uL (0-0.2); Basophils % (auto) 0.1 %; Eosinophils # (auto) 0.05 K/uL (0-0.5); Eosinophils % (auto) 0.4 %; Hematocrit (blood only) 32.8 % (37-47); Hemoglobin 11.2 g/dL (12.0-16.0); Immature Granulocytes # (auto) 0.03 K/uL (0.00-0.02); Immature Granulocytes % (auto) 0.2 %; Lymphocytes # (auto) 1.89 K/uL (1.2-3.4); Lymphocytes % (auto) 15.4 %; Mean Corpuscular Hemoglobin 27.9 pg (25-34); Mean Corpuscular Hgb Conc 34.1 g/dL (32-36); Mean Corpuscular Volume 81.6 fL (80-100); Monocytes # (auto) 1.34 K/uL (0.11-0.59); Monocytes % (auto) 10.9 %; Neutrophils # (auto) 8.92 K/uL (1.4-6.5); Platelet Count 145 K/uL (130-400); RDW Coefficient of Variation 14.2 % (11.5-14.5); Red Blood Count 4.02 M/uL (4.2-5.4); White Blood Count 12.24 K/uL (4.8-10.8)
[2021-09-26] MEDS: IBUPROFEN 600 MG TAB PO PRN ×3 (07:51→20:16)
[2021-09-26] MEDS: DOCUSATE SODIUM 100 MG CAP PO SCH ×2 (08:25→20:16)
[2021-09-26] MEDS: SIMETHICONE 80 MG CHEW PO SCH ×4 (08:25→20:16)
[2021-09-26] MEDS: PRENATAL VITAMIN 1 TAB PO SCH (08:25)
[2021-09-26] MEDS: FERROUS SULFATE 325 MG TAB PO SCH (08:25)
[2021-09-26] MEDS ORDERED: CEROVITE ADV FORMULA TAB PO SCH (09:00)
--- NOTE | 2021-09-26 09:21 | Obstetrical Progress Note ---
Date of Service September 26, 2021 Subjective Ambulation: ambulating normally Voiding: no voiding problems Passing Gas:: Yes Diet Tolerance:: regular diet Lochia:: Small Feeding Type:: breast feeding Current Pain Level(1-10): 0 doing well. Physical Exam Constitutional WD/WN, vitals as above Gastrointestinal (Abdomen) Inspection/Auscultation: abdomen normal to inspection and + abdominal surgical incision incision c/d/i. Skin no rashes, warm and dry Neurologic patellar DTR's 2+ bilat, sensation intact Psychiatric A+Ox3, euthymic affect Results & Data ([facility]) Vital Signs (Past 12 Hours) Vital Signs Temp Pulse Resp BP Pulse Ox 09/26/21 07:45 36.9 C 103 H 16 130/81 09/26/21 03:00 37.2 C 95 H 16 116/69 97 09/26/21 02:00 16 99 09/26/21 01:00 16 97 09/26/21 00:03 17 90 09/25/21 23:15 16 93 09/25/21 23:00 37.2 C 108 H 16 110/72 98 09/25/21 22:15 16 92 Laboratory Results Laboratory Results - last 72 hr 09/25/21 09/26/21 06:00 06:47 WBC 12.24 H RBC 4.02 L Hgb 11.2 L Hct 32.8 L MCV 81.6 MCH 27.9 MCHC 34.1 RDW Std Deviation 43.0 RDW Coeff of Barrie 14.2 Plt Count 145 MPV 11.0 H Immature Gran % (Auto) 0.2 Neut % (Auto) 73.0 Lymph % (Auto) 15.4 [place] % (Auto) 10.9 Eos % (Auto) 0.4 Baso % (Auto) 0.1 Neut # (Auto) 8.92 H Lymph # (Auto) 1.89 [place] # (Auto) 1.34 H Eos # (Auto) 0.05 Baso # (Auto) 0.01 Immature Gran # (Auto) 0.03 H Blood Type B Positive Antibody Screen NEGATIVE `
[2021-09-26] MEDS ORDERED: bisacodyL 5 MG TABEC PO SCH (20:00)
[2021-09-27] MEDS: IBUPROFEN 600 MG TAB PO PRN ×4 (00:06→15:05)
[2021-09-27] MEDS: oxyCODONE/ACETAMINOPHEN 5mg/325mg TAB PO PRN ×4 (00:06→15:06)
[2021-09-27 06:50] LABS: Hematocrit (blood only) 31.5 % (37-47); Hemoglobin 10.3 g/dL (12.0-16.0)
--- NOTE | 2021-09-27 08:09 | Obstetrical Progress Note ---
Date of Service September 27, 2021 Assessment & Plan Admission and Anticipated Discharge Date Admission Date: September 25, 2021 Subjective Patient is seen and examined. She feels well, no complaints. Pain is under control with oral meds. Ambulating without dizziness Voiding without difficulty Tolerating regular diet with out N&V Flatus + BM neg Bleeding is minimal No fever/ chills/ CP/ SOB/ N&V/ Leg pain Breast feeding without problems Vital Signs Temp Pulse Resp BP BP Pulse Ox 09/27/21 07:27 36.4 C L 68 18 115/76 98 09/26/21 22:30 36.5 C 95 H 16 116/72 99 09/26/21 19:11 36.4 C L 84 16 127/82 100 09/26/21 15:50 37.1 C 102 H 16 118/72 97 09/26/21 12:30 36.9 C 80 16 132/74 Lab Results 09/25/21 09/26/21 09/27/21 Range/Units 06:00 06:47 06:33 WBC 12.24 H (4.8-10.8) K/uL RBC 4.02 L (4.2-5.4) M/uL Hgb 11.2 L 10.3 L (12.0-16.0) g/dL Hct 32.8 L 31.5 L (37-47) % MCV 81.6 (80-100) fL MCH 27.9 (25-34) pg MCHC 34.1 (32-36) g/dL RDW Std Deviation 43.0 (36.4-46.3) fL RDW Coeff of Barrie 14.2 (11.5-14.5) % Plt Count 145 (130-400) K/uL MPV 11.0 H (7.4-10.4) fL Immature Gran % (Auto) 0.2 % Neut % (Auto) 73.0 % Lymph % (Auto) 15.4 % [place] % (Auto) 10.9 % Eos % (Auto) 0.4 % Baso % (Auto) 0.1 % Neut # (Auto) 8.92 H (1.4-6.5) K/uL Lymph # (Auto) 1.89 (1.2-3.4) K/uL [place] # (Auto) 1.34 H (0.11-0.59) K/uL Eos # (Auto) 0.05 (0-0.5) K/uL Baso # (Auto) 0.01 (0-0.2) K/uL Immature Gran # (Auto) 0.03 H (0.00-0.02) K/uL Blood Type B Positive Antibody Screen NEGATIVE PE: General: Alert, orientedx3, NAD CVS: S1S2 RRR Lungs; CTAB Abd: soft, NT, ND, BS+, fundus firm, below Umbilicus Incision: Clean, dry, intact Perineum intact, Lochia rubra minimal Ext; NT, no edema AP: 26 yo s/p C Section, pod# 2 VSS Afebrile doing well Continue routine postop care Encourage ambulation, PO intake Desires d/c today All questions were answered D/C home , f/u in office Discussed when to call Results & Data ([facility]) Vital Signs (Past 12 Hours) Vital Signs Temp Pulse Resp BP Pulse Ox 09/27/21 07:27 36.4 C L 68 18 115/76 98 09/26/21 22:30 36.5 C 95 H 16 116/72 99
[2021-09-27] MEDS: FERROUS SULFATE 325 MG TAB PO SCH (08:33)
[2021-09-27] MEDS: PRENATAL VITAMIN 1 TAB PO SCH (08:33)
[2021-09-27] MEDS: DOCUSATE SODIUM 100 MG CAP PO SCH (08:33)
[2021-09-27] MEDS: SIMETHICONE 80 MG CHEW PO SCH ×2 (08:33→12:35)
[2021-09-27] MEDS ORDERED: bisacodyL 10 MG SUPP PR PRN (09:34)
--- NOTE | 2021-10-03 01:01 | Discharge Summary (DS) ---
DATE OF ADMISSION: 09/25/2021 DATE OF DISCHARGE: 09/27/2021 HISTORY AND HOSPITAL COURSE: The patient is a 26-year-old female admitted at 39 weeks and 2 days for elective repeat section. section was done under spinal anesthesia without difficu lty. The delivery was accomplished from the vertex presentation. Apgars were 8 and 9. Live male, b irth weight was 7 pounds 9.5 ounces. Hospital course was unremarkable. The patient subsequently did well, was discharged home 09/27/2021 in stable condition. Home going instructions were reviewed and given to the patient. Regular diet o n discharge. Follow up in 1 week for incision check. Medications include Motrin and Percocet and re gular diet. Job ID: [id number]
--- NOTE | 2021-10-09 11:16 | Coding Query ---
PATHOLOGY To promote full compliance with coding requirements relating to patient care, physician participation is requested in all cases of machined parts quality inspector uncertainty. Please assist us with the question(s) below: Please review the Pathology report and please document any relevant diagnosis(es) below: Diagnosis(es): section delivered Thank you Laron MENDOZA
== END 2021-09-27 16:56 | disposition home or self-care (01) | DRG 788 ==
LOC: 4S1 05:39 → EDSTATUS 07:30 → 4E2 12:20